=== PATIENT | female | born 1965 | race Caucasian/White ===

== ENCOUNTER 2017-12-27 18:46 | Inpatient (IN) | payer OTHER ==
[~2017-12-27] VITALS: Ht 162.6 cm; Wt 70.0 kg
[~2017-12-27 18:46] MED LIST: GABA-113 PO; ZLF50 PO
[2017-12-27] MEDS ORDERED: SODIUM CHLORIDE 0.9% 1000ML 1,000 ML IV STA (19:01)
[2017-12-27] MEDS ORDERED: DiphenhydrAMINE HCL 50 MG/ML VIAL IV STA (19:01)
[2017-12-27] MEDS ORDERED: PROMETHAZINE HCL INJ 25 MG in SODIUM CHLORIDE 0.9% 50ML 50 ML IV STA (19:01)
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
[2017-12-27 19:14] LABS: HEMATOCRIT 38.3 % (37-47); HEMOGLOBIN 13.3 g/dL (12.0-16.0); MEAN CELL VOLUME 92.5 fL (80-100); MEAN CORPUSCULAR HEMOGLOBIN 32.1 pg (25-34); MEAN CORPUSCULAR HGB CONC 34.7 g/dl (32-36); MEAN PLATELET VOLUME 10.6 fL (7.4-10.4); PLATELET COUNT 211 K/uL (130-400); RED CELL DISTRIBUTION WIDTH CV 12.9 % (11.5-14.5); RED CELL DISTRIBUTION WIDTH SD 43.2 fL (36.4-46.3); WHITE BLOOD COUNT 5.46 K/uL (4.8-10.8)
[2017-12-27 19:27] LABS: INR 0.9 (0.9-1.1); PTT PATIENT 25.8 SECONDS (21.0-31.0)
--- NOTE | 2017-12-27 19:29 | DIAGNOSTIC IMAGING REPORT ---
CHEST ONE VIEW PORTABLE CLINICAL HISTORY: EVALUATE ALTERED MENTAL STATUS/WEAKNESS mental status change COMPARISON STUDY: No previous studies for comparison. FINDINGS: The bones soft tissues and hemidiaphragms are normal. The cardiomediastinal silhouette is normal. The lungs are clear. The pulmonary vasculature is normal. Bilateral bile stimulator leads. IMPRESSION: No acute process. The above report was generated using voice recognition software. It may contain grammatical, syntax or spelling errors. Electronically signed by: Jorgito Lacy M.D. 12/27/2017 7:27 PM Dictated Date/Time: 12/27/2017 7:27 PM
--- NOTE | 2017-12-27 19:35 | DIAGNOSTIC IMAGING REPORT ---
HEAD WITHOUT CONTRAST (CT) CT DOSE: 623.48 mGy.cm HISTORY: Mental status change EVALUATE ALTERED MENTAL STATUS/WEAKNESS TECHNIQUE: Multiaxial CT images of the head were performed without the use of intravenous contrast. A dose lowering technique was utilized adhering to the principles of ALARA. Comparison: 07/10/2014 Findings: The paranasal sinuses and mastoid air cells are clear. The calvarium and skull base are intact. The ventricles and sulci are within normal limits. There is no mass, hematoma, midline shift, or acute infarct. Impression: No acute intracranial abnormality. The above report was generated using voice recognition software. It may contain grammatical, syntax or spelling errors. Electronically signed by: Jorgito Lacy M.D. 12/27/2017 7:34 PM Dictated Date/Time: 12/27/2017 7:32 PM
[2017-12-27 19:54] LABS: ALBUMIN 3.6 gm/dl (3.4-5.0); ALKALINE PHOSPHATASE 206 U/L (45-117); ALT/SGPT 112 U/L (12-78); AST/SGOT 37 U/L (15-37); BLOOD UREA NITROGEN 11 mg/dl (7-18); CARBON DIOXIDE 27 mmol/L (21-32); CREATININE 0.99 mg/dl (0.60-1.20); GLUCOSE 67 mg/dl (70-99); POTASSIUM 3.4 mmol/L (3.5-5.1); SODIUM 140 mmol/L (136-145); TOTAL PROTEIN 7.2 gm/dl (6.4-8.2)
[2017-12-27] MEDS ORDERED: LIDOCAINE 1% BUFFERED INJ 5 ML VIAL INFIL ONE (20:30)
[2017-12-27] MEDS ORDERED: KETOROLAC TROMETHAMINE 30 MG/ML VIAL IV STA (20:50)
[2017-12-27 21:21] LABS: BASO % 1.1 %; BASO ABS # 0.06 K/uL (0-0.2); EOS % 1.1 %; EOS ABS # 0.06 K/uL (0-0.5); IG# 0.01 K/uL (0.00-0.02); LYMPH % 50.5 %; LYMPH ABS # 2.76 K/uL (1.2-3.4); MONO % 6.6 %; MONO ABS # 0.36 K/uL (0.11-0.59); NEUT % 40.5 %; NEUT ABS # 2.21 K/uL (1.4-6.5)
[2017-12-27 21:26] LABS: CSF GLUCOSE 57 mg/dl (40-70); CSF TOTAL PROTEIN 41.5 mg/dl (15.0-45.0)
[2017-12-27] MEDS ORDERED: CEFTRIAXONE SOD INJ 2,000 MG in DEXTROSE 5% 50ML 50 ML IV STA (22:20)
[2017-12-27] MEDS ORDERED: CEFTRIAXONE SOD INJ 1 GM ADDVIAL ONE (22:45)
[2017-12-27] MEDS ORDERED: CALCIUM GLUCONATE 10% 1,000 MG in SODIUM CHLORIDE 0.9% 50ML 50 ML IV STA (22:48)
[2017-12-27] MEDS ORDERED: BUTA1TAB70 PO (22:58)
[2017-12-27] MEDS ORDERED: NRN800 PO (22:58)
[2017-12-27] MEDS ORDERED: ROPI1TAB29 PO (22:58)
[2017-12-27] MEDS ORDERED: ZNF/4 PO (22:58)
[2017-12-27] MEDS ORDERED: OXYM1TAB37 PO (22:58)
[2017-12-27] MEDS ORDERED: POTASSIUM CHLORIDE 10 MEQ TABCR ONE (23:59)
[2017-12-28] MEDS ORDERED: PROCHLORPERAZINE INJ 5 MG in SYRINGE 4 ML IV PRN (00:15)
[2017-12-28] MEDS ORDERED: ACETAMINOPHEN 325 MG TAB PO PRN (00:15)
[2017-12-28] MEDS ORDERED: MoRPHine SULFATE 4 MG/ML 1 ML CARP\\VIAL IV PRN (00:15)
[2017-12-28] MEDS ORDERED: IBUPROFEN 200 MG TAB PO PRN (00:15)
[2017-12-28] MEDS ORDERED: KETOROLAC TROMETHAMINE 15 MG/ML VIAL IV. PRN (00:15)
[2017-12-28] MEDS ORDERED: IV FLUIDS COMPLETED PRN (00:45)
[2017-12-28] MEDS ORDERED: LACTATED RINGER'S 1000ML 1,000 ML IV ONE (00:45)
[2017-12-28 01:48] VITALS: BP 111/71; PULSE 60; TEMP 36.8; O2SAT 97; Ht 162.6 cm; Wt 70.0 kg
[2017-12-28] MEDS ORDERED: POTASSIUM CHLORIDE 10 MEQ TABCR PO ONE (02:00)
[2017-12-28] MEDS ORDERED: DOXYCYCLINE IV 100 MG in DEXTROSE 5% 100ML 100 ML IV SCH (02:30)
--- NOTE | 2017-12-28 04:42 | HISTORY & PHYSICAL EXAMINATION ---
DATE OF ADMISSION: 12/27/2017 PRIMARY CARE PHYSICIAN: Dr. Rock CHIEF COMPLAINT: Illness and headache. HISTORY OF PRESENT ILLNESS: History obtained from patient and records. Medical history significant for chronic back pain sp stimulator placement on narcotics, ongoing tobacco abuse. Recent confinement at the [facility] last 04/2015 for major depressive disorder. Lst week, patient had on and off achy headache/posterior neck pain worse with coughing and lying down. Patient coughing out yellow sputum. No chest pain, no shortness of breath. Some chills. Poor appetite. Headache different from migraine. No recollection recent tick bites although has been exposed to ticks in the past. Patient brought to the Emergency Room. Patient given Ceftriaxone IV for abnormal Lyme screen after lumbar puncture done. MEDICAL HISTORY: As above. SURGERIES: Back stimulator. HOME MEDICATIONS: Include butalbital, gabapentin, oxymorphone, ropinirole, tizanidine. ALLERGIES: No known drug allergies. FAMILY HISTORY: Hypertension. PERSONAL AND SOCIAL HISTORY: Half pack daily. No chronic intake of alcohol abuse. 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 REVIEW OF SYSTEMS: As per HPI. All 10 systems reviewed. All other ROS negative. LABORATORY: Hg 13.8, White cell count 5.4, platelets 211. Sodium 140, K 3.4 glucose of 68 later 90. ALT 117 alk phos 206 Lyme screen IgM positive. Chest x-ray, no acute process. CT head, no acute pathology. CSF clear, colorless, no xanthochromia. CSF WBC was 8, glucose 57, total protein 41. ASSESSMENT AND PLAN: 1. Headache possibly from viral illness; post-tussive from complicated bronchitis. No sepsis rule out bony neck pathology ? TUNA PURSE SEINER Lyme (abnormal Lyme screen/atypical CSF picture) 2. Chronic back pain sp stimulator placement on narcotics. 3. Hypokalemia 4. Ongoing tobacco abuse PLAN: Observation GMF analgesia. Check viral CSF studies Cervical x-ray Doxycycline for complicated bronchitis. ID consult RE abnormal Lyme. Hold additional Ceftriaxone for possible TUNA PURSE SEINER Lyme until patient seen by ID. Replace potassium. Nicotine patch. DVT prophylaxis with Lovenox subQ. Full code. MTDD
[2017-12-28] MEDS ORDERED: ALBUT/IPRATROP 3MG/0.5MG NEB 3 ML VIAL INH PRN (06:30)
[2017-12-28] MEDS: GABAPENTIN 800 MG TAB PO SCH ×3 (07:37→20:37)
[2017-12-28] MEDS: NICOTINE 14 MG/24 HR TDSY TD SCH (07:37)
[2017-12-28 07:47] VITALS: BP 133/83; PULSE 69; TEMP 36.8; O2SAT 95
--- NOTE | 2017-12-28 08:35 | DIAGNOSTIC IMAGING REPORT ---
CERVICAL SPINE 2 OR 3 VIEWS CLINICAL HISTORY: Neck pain. COMPARISON STUDY: Cervical spine CT July 10, 2014. FINDINGS: Alignment of the cervical spine is anatomic. Vertebral body heights are maintained. There is no fracture or suspicious lesion. Disc spaces are preserved. There is minimal endplate osteophytosis at several levels. There is mild multilevel facet arthrosis. IMPRESSION: 1. No cervical spine fracture. 2. Minimal degenerative changes of the cervical spine. Electronically signed by: Nagi Santana M.D. 12/28/2017 8:33 AM Dictated Date/Time: 12/28/2017 8:31 AM
[2017-12-28 08:51] LABS: BASO % 1.2 %; BASO ABS # 0.05 K/uL (0-0.2); EOS % 0.7 %; EOS ABS # 0.03 K/uL (0-0.5); HEMATOCRIT 34.2 % (37-47); HEMOGLOBIN 11.3 g/dL (12.0-16.0); IG# 0.01 K/uL (0.00-0.02); LYMPH % 34.3 %; LYMPH ABS # 1.48 K/uL (1.2-3.4); MEAN CELL VOLUME 93.2 fL (80-100); MEAN CORPUSCULAR HEMOGLOBIN 30.8 pg (25-34); MEAN PLATELET VOLUME 10.6 fL (7.4-10.4); MONO ABS # 0.26 K/uL (0.11-0.59); NEUT % 57.6 %; NEUT ABS # 2.49 K/uL (1.4-6.5); PLATELET COUNT 177 K/uL (130-400); RED CELL DISTRIBUTION WIDTH CV 12.9 % (11.5-14.5); WHITE BLOOD COUNT 4.32 K/uL (4.8-10.8)
[2017-12-28] MEDS ORDERED: ENOXAPARIN 40 MG/0.4 ML SYR SQ SCH (09:00)
[2017-12-28] MEDS ORDERED: BENZONATATE 100MG CAP PO PRN (09:15)
[2017-12-28 09:28] LABS: CALCIUM 8.6 mg/dl (8.5-10.1); CREATININE 0.92 mg/dl (0.60-1.20); POTASSIUM 4.2 mmol/L (3.5-5.1); TOTAL PROTEIN 5.8 gm/dl (6.4-8.2)
[2017-12-28] MEDS: OXYMORPHONE HCL 10 MG PO SCH ×2 (13:49→20:38)
[2017-12-28] MEDS: PATIENT'S OWN CONTROLLED MED PO SCH ×2 (13:50→20:38)
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
[2017-12-28 15:53] VITALS: BP 120/77; PULSE 62; TEMP 36.4; O2SAT 97
--- NOTE | 2017-12-28 16:40 | Progress Note ---
Medicine Progress Note Date & Time of Visit: Dec 28, 2017 at 16:33. Subjective Seen sitting up in bed, talking on the phone Alert, comfortable, not in distress states her headache is 0 out of 10 at the time of my exam denies dizziness, fevers chills, Shortness of breath, chest pain No other symptoms Objective Last 8 Hrs Date Time Temp Pulse Resp B/P (MAP) Pulse Ox O2 Delivery O2 Flow Rate FiO2 12/28/17 15:53 36.4 62 20 120/77 (91) 97 Room Air Physical Exam: General-oriented 3, not in distress, speaking in sentences, no accessory muscle use Head- atraumatic Eyes- PERRL, EOMI, anicteric ENT- oropharynx clear Neck- supple, no JVD, positive small cervical lymphadenopathy lateral left side , no thyromegaly; carotids +2/2, no bruits appreciated Lungs- clear to auscultation bilaterally Heart-normal rate, regular rhythm; no murmur Abdomen- normal bowel sounds, soft, nontender, no masses or hepatosplenomegaly Extremities- no pretibial edema, no calf tenderness; peripheral pulses intact Neuro- alert, oriented x 3; no gross focal neurologic deficits Skin- warm & dry Laboratory Results: Last 24 Hours Test 12/27/17 18:50 12/27/17 19:04 12/27/17 20:45 12/27/17 23:58 Urine Color YELLOW Urine Appearance CLEAR Urine pH 6.5 Urine Specific [place] 1.012 Urine Protein NEG Urine Glucose (UA) NEG Urine Ketones NEG Urine Occult Blood NEG Urine Nitrite NEG Urine Bilirubin NEG Urine Urobilinogen POS Urine Leukocyte Esterase TRACE Urine WBC (Auto) 5-10 /hpf Urine RBC (Auto) 0-4 /hpf Urine Hyaline Casts (Auto) 1-5 /lpf Urine Epithelial Cells (Auto) >30 /lpf Urine Bacteria (Auto) NEG White Blood Count 5.46 K/uL Red Blood Count 4.14 M/uL Hemoglobin 13.3 g/dL Hematocrit 38.3 % Mean Corpuscular Volume 92.5 fL Mean Corpuscular Hemoglobin 32.1 pg Mean Corpuscular Hemoglobin Concent 34.7 g/dl Platelet Count 211 K/uL Mean Platelet Volume 10.6 fL Neutrophils (%) (Auto) 40.5 % Lymphocytes (%) (Auto) 50.5 % Monocytes (%) (Auto) 6.6 % Eosinophils (%) (Auto) 1.1 % Basophils (%) (Auto) 1.1 % Neutrophils # (Auto) 2.21 K/uL Lymphocytes # (Auto) 2.76 K/uL Monocytes # (Auto) 0.36 K/uL Eosinophils # (Auto) 0.06 K/uL Basophils # (Auto) 0.06 K/uL RDW Standard Deviation 43.2 fL RDW Coefficient of Variation 12.9 % Immature Granulocyte % (Auto) 0.2 % Immature Granulocyte # (Auto) 0.01 K/uL Prothrombin Time 9.8 SECONDS Prothromb Time International Ratio 0.9 Activated Partial Thromboplast Time 25.8 SECONDS Partial Thromboplastin Ratio 1.0 Sodium Level 140 mmol/L Potassium Level 3.4 mmol/L Chloride Level 107 mmol/L Carbon Dioxide Level 27 mmol/L Anion Gap 6.0 mmol/L Blood Urea Nitrogen 11 mg/dl Creatinine 0.99 mg/dl Est Creatinine Clear Calc Drug Dose 65.8 ml/min Estimated GFR () 77.0 Estimated GFR (Non- 66.4 BUN/Creatinine Ratio 10.6 Random Glucose 67 mg/dl Calcium Level 8.0 mg/dl Magnesium Level 2.0 mg/dl Total Bilirubin 0.8 mg/dl Direct Bilirubin 0.3 mg/dl Aspartate Amino Transf (AST/SGOT) 37 U/L Alanine Aminotransferase (ALT/SGPT) 112 U/L Alkaline Phosphatase 206 U/L Troponin I < 0.015 ng/ml Total Protein 7.2 gm/dl Albumin 3.6 gm/dl Thyroid Stimulating Hormone (TSH) 4.890 uIu/ml Lyme Disease IgG Antibody NEG Lyme Disease IgM Antibody POS CSF Color COLORLESS CSF Appearance CLEAR CSF WBC 8 /uL CSF RBC 0 /uL CSF Xanthrochromic NO XANTHOCHROMIA CSF Cell Count Tube # 4 CSF Chemistry Tube # 2 CSF Glucose 57 mg/dl CSF Total Protein 41.5 mg/dl Bedside Glucose 96 mg/dl Test 12/28/17 08:06 White Blood Count 4.32 K/uL Red Blood Count 3.67 M/uL Hemoglobin 11.3 g/dL Hematocrit 34.2 % Mean Corpuscular Volume 93.2 fL Mean Corpuscular Hemoglobin 30.8 pg Mean Corpuscular Hemoglobin Concent 33.0 g/dl Platelet Count 177 K/uL Mean Platelet Volume 10.6 fL Neutrophils (%) (Auto) 57.6 % Lymphocytes (%) (Auto) 34.3 % Monocytes (%) (Auto) 6.0 % Eosinophils (%) (Auto) 0.7 % Basophils (%) (Auto) 1.2 % Neutrophils # (Auto) 2.49 K/uL Lymphocytes # (Auto) 1.48 K/uL Monocytes # (Auto) 0.26 K/uL Eosinophils # (Auto) 0.03 K/uL Basophils # (Auto) 0.05 K/uL RDW Standard Deviation 44.0 fL RDW Coefficient of Variation 12.9 % Immature Granulocyte % (Auto) 0.2 % Immature Granulocyte # (Auto) 0.01 K/uL Sodium Level 143 mmol/L Potassium Level 4.2 mmol/L Chloride Level 112 mmol/L Carbon Dioxide Level 27 mmol/L Anion Gap 4.0 mmol/L Blood Urea Nitrogen 11 mg/dl Creatinine 0.92 mg/dl Est Creatinine Clear Calc Drug Dose 70.3 ml/min Estimated GFR () 84.1 Estimated GFR (Non- 72.6 BUN/Creatinine Ratio 12.2 Random Glucose 103 mg/dl Calcium Level 8.6 mg/dl Total Bilirubin 0.6 mg/dl Aspartate Amino Transf (AST/SGOT) 127 U/L Alanine Aminotransferase (ALT/SGPT) 141 U/L Alkaline Phosphatase 217 U/L Total Protein 5.8 gm/dl Albumin 3.0 gm/dl Globulin 2.8 gm/dl Albumin/Globulin Ratio 1.1 Date/Time Source Procedure Growth Status 12/27/17 20:45 Cerebral Spinal Fluid Gram Stain - Final Resulted 12/27/17 20:45 Cerebral Spinal Fluid CSF Culture - Preliminary NO GROWTH TO DATE. 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 Chronic back pain sp stimulator placement on narcotics Continue usual medications Hypokalemia Replaced Potassium level normal Ongoing tobacco abuse Nicotine patch DVT prophylaxis Lovenox disposition Anticipate discharge home medically stable Current Inpatient Medications: Current Inpatient Medications Medications (Trade) Dose Ordered Sig/Abdiel Route Start Time Stop Time Status Last Admin Dose Admin Doxycycline Hyclate (Vibramycin Cap) 100 mg BID PO 12/28/17 20:00 01/04/18 20:59 Acetaminophen (Tylenol Tab) 325 mg Q6H PRN PO 12/28/17 00:15 01/27/18 00:14 12/28/17 05:09 325 MG Prochlorperazine Edisylate 5 mg/ Syringe 5 ml @ 5 mls/min Q6H PRN IV 12/28/17 00:15 01/27/18 00:14 Ketorolac Tromethamine (Toradol Inj) 15 mg Q6H PRN IV. 12/28/17 00:15 01/02/18 00:14 12/28/17 07:12 15 MG Ibuprofen (Advil Tab) 400 mg Q6H PRN PO 12/28/17 00:15 01/27/18 00:14 Morphine Sulfate (MoRPHine SULFATE INJ) 4 mg Q6H PRN IV 12/28/17 00:15 01/11/18 00:14 Gabapentin (Neurontin Tab) 800 mg TID PO 12/28/17 08:00 01/27/18 08:59 12/28/17 13:49 800 MG Ropinirole HCl (Requip Tab) 1 mg HS PO 12/28/17 21:00 01/27/18 20:59 Tizanidine HCl (Zanaflex Tab) 4 mg TID PRN PO 12/28/17 00:15 01/27/18 00:14 12/28/17 03:00 4 MG Nicotine (Nicoderm Cq 14MG Patch) 1 patch QAM TD 12/28/17 08:00 01/27/18 08:59 12/28/17 07:37 1 PATCH Miscellaneous (Remove Nicoderm Patch) 1 ea HS N/A 12/28/17 21:00 01/27/18 20:59 Miscellaneous (Iv Fluids Completed) 1 ea PRN PRN N/A 12/28/17 00:45 12/28/18 00:44 Albuterol/ Ipratropium (Duoneb) 3 ml Q2H PRN INH 12/28/17 06:30 01/27/18 06:29 Benzonatate (Tessalon Perles Cap) 100 mg Q8H PRN PO 12/28/17 09:15 01/27/18 09:14 Enoxaparin Sodium (Lovenox Inj) 40 mg Q24H SQ 12/29/17 09:00 01/27/18 08:59 Oxymorphone HCl (Opana Er) 10 mg TID PO 12/28/17 14:00 01/11/18 13:59 12/28/17 13:49 10 MG Non-Formulary Medication (Patient'S Own Controlled Med) 1 ea TID PO 12/28/17 14:00 01/11/18 13:59 12/28/17 13:50 1 EA
[2017-12-28] MEDS: SODIUM CHLORIDE 0.9% 1000ML 1,000 ML IV SCH (17:07)
--- NOTE | 2017-12-28 18:50 | DIAGNOSTIC IMAGING REPORT ---
(LIVER) ABDOMEN LIMITED HISTORY: 52 years-old Female ELEVATED LFTS acutely elevated LFTs COMPARISON: None available TECHNIQUE: Multiple real-time sonographic images of the abdominal right upper quadrant were obtained assessing grayscale appearance and color flow FINDINGS: The visualized pancreas appears unremarkable. The liver is also within normal limits without focal mass, marginal nodularity or intrahepatic biliary ductal dilation. Liver measures up to 17.7 cm in greatest dimension. The gallbladder is unremarkable without wall thickening, shadowing cholelithiasis or pericholecystic fluid. Sonographic Manning sign reported as negative. Common bile duct is normal, 5 mm. The imaged right kidney is unremarkable without hydronephrosis measuring up to 10.9 cm in length. IMPRESSION: 1. No cholelithiasis or sonographic evidence of acute cholecystitis. 2. No biliary ductal dilation. The above report was generated using voice recognition software. It may contain grammatical, syntax or spelling errors. Electronically signed by: Pa Smith M.D. 12/28/2017 6:49 PM Dictated Date/Time: 12/28/2017 6:47 PM
[2017-12-28] MEDS ORDERED: DOXYCYCLINE HYCLATE 100 MG CAP PO SCH (20:00)
[2017-12-28] MEDS: CEFTRIAXONE SOD INJ 2,000 MG in DEXTROSE 5% 50ML 50 ML IV SCH (20:38)
[2017-12-28] MEDS: ROPINIROLE HCL 1 MG TAB PO SCH (20:38)
[2017-12-28 20:40] VITALS: BP 115/77; PULSE 63; TEMP 36.7; O2SAT 96
[2017-12-28 23:15] VITALS: BP 115/77; PULSE 65; TEMP 36.7; O2SAT 96
[2017-12-29] MEDS: SODIUM CHLORIDE 0.9% 1000ML 1,000 ML IV SCH ×2 (06:06→19:41)
[2017-12-29 07:05] VITALS: BP 125/72; PULSE 56; TEMP 36.6; O2SAT 95
[2017-12-29] MEDS: PATIENT'S OWN CONTROLLED MED PO SCH ×3 (08:00→20:00)
[2017-12-29] MEDS: OXYMORPHONE HCL 10 MG PO SCH ×3 (08:45→20:30)
[2017-12-29] MEDS: GABAPENTIN 800 MG TAB PO SCH ×3 (08:47→20:33)
[2017-12-29] MEDS: NICOTINE 14 MG/24 HR TDSY TD SCH (08:48)
[2017-12-29] MEDS: ENOXAPARIN 40 MG/0.4 ML SYR SQ SCH ×2 (08:48→08:50)
--- NOTE | 2017-12-29 09:47 | DIAGNOSTIC IMAGING REPORT ---
CT OF THE BRAIN WITH IV CONTRAST CLINICAL HISTORY: Headaches. COMPARISON STUDY: Noncontrast study dated 12/27/2017 TECHNIQUE: Axial CT of the brain is performed from the vertex to the skull base. IV contrast was administered for this examination. A dose lowering technique was utilized adhering to the principles of ALARA. The patient was administered 93 cc of Optiray 320. CT DOSE: 1074.96 mGy.cm DISCUSSION: Brain parenchyma: The brain parenchyma is normal in appearance. There is no hemorrhage, mass effect, or evidence of acute territorial ischemia by CT criteria. Rios-white matter differentiation is maintained. No extra-axial fluid collection is seen. Ventricles, sulci and cisterns: Normal in configuration. Intracranial vasculature: Unremarkable. Calvarium: Unremarkable. Sinuses and mastoids: The imaged paranasal sinuses are clear. The mastoid air cells are well pneumatized. Orbits: Grossly intact. IMPRESSION: [No acute intracranial findings.] Electronically signed by: Romie Ott M.D. 12/29/2017 9:46 AM Dictated Date/Time: 12/29/2017 9:44 AM
[2017-12-29 09:48] LABS: ALBUMIN 3.1 gm/dl (3.4-5.0); CALCIUM 8.8 mg/dl (8.5-10.1); CREATININE 0.95 mg/dl (0.60-1.20); TOTAL PROTEIN 6.4 gm/dl (6.4-8.2)
--- NOTE | 2017-12-29 13:01 | Progress Note ---
Medicine Progress Note Date & Time of Visit: Dec 29, 2017 at 13:01. Subjective Seen sitting up in bedside chair, comfortable, good spirits No recurrence of headache since yesterday Has mild neck muscle pain contributes to when she was vomiting Denies dizziness, shortness of breath, chest pain, abdominal pain, fevers chills No other symptoms Objective Last 8 Hrs Date Time Temp Pulse Resp B/P (MAP) Pulse Ox O2 Delivery O2 Flow Rate FiO2 12/29/17 09:21 Room Air 12/29/17 07:05 36.6 56 18 125/72 (89) 95 Room Air Physical Exam: General-oriented 3, not in distress, speaking in sentences, no accessory muscle use Eyes-anicteric ENT- oropharynx clear Neck- supple, no JVD Lungs- clear breath sounds bilaterally Heart-normal rate, regular rhythm; no murmur Abdomen- normal bowel sounds, soft, nontender Extremities- no pretibial edema, no calf tenderness; peripheral pulses intact Neuro- alert, oriented x 3; no gross focal neurologic deficits Skin- warm & dry Laboratory Results: Last 24 Hours Test 12/29/17 08:37 Sodium Level 143 mmol/L Potassium Level 4.0 mmol/L Chloride Level 109 mmol/L Carbon Dioxide Level 30 mmol/L Anion Gap 4.0 mmol/L Blood Urea Nitrogen 12 mg/dl Creatinine 0.95 mg/dl Est Creatinine Clear Calc Drug Dose 68.0 ml/min Estimated GFR () 80.9 Estimated GFR (Non- 69.8 BUN/Creatinine Ratio 12.8 Random Glucose 96 mg/dl Calcium Level 8.8 mg/dl Total Bilirubin 0.4 mg/dl Direct Bilirubin 0.2 mg/dl Aspartate Amino Transf (AST/SGOT) 50 U/L Alanine Aminotransferase (ALT/SGPT) 111 U/L Alkaline Phosphatase 194 U/L Total Protein 6.4 gm/dl Albumin 3.1 gm/dl Assessment & Plan HEADACHE, POSSIBLY FROM UNDERLYING LYME DISEASE Status post lumbar puncture: WBC 8, glucose and protein within normal limits CSF cultures no growth IgM Lyme positive Western blot pending, CSF Lyme pending ID consulted, recommend to continue ceftriaxone 2 g IV daily Brain MRI with and without contrast ordered-not done as patient is back stimulator CT head with contrast: No acute findings Headache resolved Other workup: Cervical spine x-ray no acute process POSSIBLE ACUTE BRONCHITIS Chest x-ray no signs of infiltrate to indicate pneumonia Currently on ceftriaxone Denies cough and shortness of breath ELEVATED LFTS Can be secondary to underlying infection Patient denies alcohol use Check liver ultrasound no acute findings Check hepatitis panel hepatitis C: Negative, hepatitis A B pending LFTs improving, monitor Chronic back pain sp stimulator placement on narcotics Continue usual medications Hypokalemia Replaced Potassium level normal Ongoing tobacco abuse Nicotine patch DVT prophylaxis Lovenox disposition Anticipate discharge home medically stable Current Inpatient Medications: Current Inpatient Medications Medications (Trade) Dose Ordered Sig/Abdiel Route Start Time Stop Time Status Last Admin Dose Admin Acetaminophen (Tylenol Tab) 325 mg Q6H PRN PO 12/28/17 00:15 01/27/18 00:14 12/28/17 05:09 325 MG Prochlorperazine Edisylate 5 mg/ Syringe 5 ml @ 5 mls/min Q6H PRN IV 12/28/17 00:15 01/27/18 00:14 Morphine Sulfate (MoRPHine SULFATE INJ) 4 mg Q6H PRN IV 12/28/17 00:15 01/11/18 00:14 Gabapentin (Neurontin Tab) 800 mg TID PO 12/28/17 08:00 01/27/18 08:59 12/29/17 08:47 800 MG Ropinirole HCl (Requip Tab) 1 mg HS PO 12/28/17 21:00 01/27/18 20:59 12/28/17 20:38 1 MG Tizanidine HCl (Zanaflex Tab) 4 mg TID PRN PO 12/28/17 00:15 01/27/18 00:14 12/28/17 03:00 4 MG Nicotine (Nicoderm Cq 14MG Patch) 1 patch QAM TD 12/28/17 08:00 01/27/18 08:59 12/29/17 08:48 1 PATCH Miscellaneous (Remove Nicoderm Patch) 1 ea HS N/A 12/28/17 21:00 01/27/18 20:59 12/28/17 20:38 1 EA Miscellaneous (Iv Fluids Completed) 1 ea PRN PRN N/A 12/28/17 00:45 12/28/18 00:44 Albuterol/ Ipratropium (Duoneb) 3 ml Q2H PRN INH 12/28/17 06:30 8/23/18 06:29 Benzonatate (Tessalon Perles Cap) 100 mg Q8H PRN PO 12/28/17 09:15 01/27/18 09:14 Enoxaparin Sodium (Lovenox Inj) 40 mg Q24H SQ 12/29/17 09:00 01/27/18 08:59 Oxymorphone HCl (Opana Er) 10 mg TID PO 12/28/17 14:00 01/11/18 13:59 12/29/17 08:45 10 MG Non-Formulary Medication (Patient'S Own Controlled Med) 1 ea TID PO 12/28/17 14:00 01/11/18 13:59 12/29/17 08:00 1 EA Ceftriaxone Sodium 2000 mg/ Dextrose 70 ml @ 100 mls/hr Q24H IV 12/28/17 21:00 01/06/18 20:59 12/28/17 20:38 100 MLS/HR Sodium Chloride 1,000 ml @ 75 mls/hr [id number] IV 12/28/17 16:45 01/27/18 16:44 12/29/17 06:06 75 MLS/HR
[2017-12-29 14:15] LABS: HEP C IGG 13 YRS+OLDER_RFLX NEG (NEG)
[2017-12-29 15:31] VITALS: BP 119/71; PULSE 56; TEMP 36.8; O2SAT 96
[2017-12-29] MEDS ORDERED: CYCLOBENZAPRINE HCL 5 MG TAB PO PRN (19:15)
[2017-12-29] MEDS: ROPINIROLE HCL 1 MG TAB PO SCH (20:33)
[2017-12-29] MEDS: CEFTRIAXONE SOD INJ 2,000 MG in DEXTROSE 5% 50ML 50 ML IV SCH (20:35)
[2017-12-30 00:15] VITALS: BP 124/75; PULSE 56; TEMP 36.5; O2SAT 93
[2017-12-30 07:36] VITALS: BP 149/88; PULSE 58; TEMP 36.7; O2SAT 95
[2017-12-30 08:19] LABS: CREATININE 0.99 mg/dl (0.60-1.20); TOTAL PROTEIN 6.1 gm/dl (6.4-8.2)
[2017-12-30] MEDS: ENOXAPARIN 40 MG/0.4 ML SYR SQ SCH (08:30)
[2017-12-30] MEDS: GABAPENTIN 800 MG TAB PO SCH ×2 (08:42→13:50)
[2017-12-30] MEDS: NICOTINE 14 MG/24 HR TDSY TD SCH (08:43)
[2017-12-30] MEDS: OXYMORPHONE HCL 10 MG PO SCH ×2 (08:43→13:50)
[2017-12-30] MEDS: PATIENT'S OWN CONTROLLED MED PO SCH ×2 (08:47→13:50)
[2017-12-30] MEDS: SODIUM CHLORIDE 0.9% 1000ML 1,000 ML IV SCH (08:47)
--- NOTE | 2017-12-30 10:25 | Infectious Disease Progress Nt ---
Progress Note Date of Service Dec 30, 2017. Subjective Pt evaluation today including: conversation w/ patient, physical exam, chart review, lab review, review of studies, conversation w/ e business consultant, review of inpatient medication list Patient feeling significantly better, headache resolved, back pain also gone. Remains afebrile. No other new complaints. All Other Systems: Reviewed and Negative Medications Current Inpatient Medications Medications (Trade) Dose Ordered Sig/Abdiel Route Start Time Stop Time Status Last Admin Dose Admin Acetaminophen (Tylenol Tab) 325 mg Q6H PRN PO 12/28/17 00:15 01/27/18 00:14 12/28/17 05:09 325 MG Prochlorperazine Edisylate 5 mg/ Syringe 5 ml @ 5 mls/min Q6H PRN IV 12/28/17 00:15 01/27/18 00:14 Morphine Sulfate (MoRPHine SULFATE INJ) 4 mg Q6H PRN IV 12/28/17 00:15 01/11/18 00:14 Gabapentin (Neurontin Tab) 800 mg TID PO 12/28/17 08:00 01/27/18 08:59 12/30/17 08:42 800 MG Ropinirole HCl (Requip Tab) 1 mg HS PO 12/28/17 21:00 01/27/18 20:59 12/29/17 20:33 1 MG Tizanidine HCl (Zanaflex Tab) 4 mg TID PRN PO 12/28/17 00:15 01/27/18 00:14 12/29/17 14:33 4 MG Nicotine (Nicoderm Cq 14MG Patch) 1 patch QAM TD 12/28/17 08:00 01/27/18 08:59 12/30/17 08:43 1 PATCH Miscellaneous (Remove Nicoderm Patch) 1 ea HS N/A 12/28/17 21:00 01/27/18 20:59 12/29/17 20:34 1 EA Miscellaneous (Iv Fluids Completed) 1 ea PRN PRN N/A 12/28/17 00:45 12/28/18 00:44 Albuterol/ Ipratropium (Duoneb) 3 ml Q2H PRN INH 12/28/17 06:30 01/27/18 06:29 Benzonatate (Tessalon Perles Cap) 100 mg Q8H PRN PO 12/28/17 09:15 01/27/18 09:14 Enoxaparin Sodium (Lovenox Inj) 40 mg Q24H SQ 12/29/17 09:00 01/27/18 08:59 Oxymorphone HCl (Opana Er) 10 mg TID PO 12/28/17 14:00 01/11/18 13:59 12/30/17 08:43 10 MG Non-Formulary Medication (Patient'S Own Controlled Med) 1 ea TID PO 12/28/17 14:00 01/11/18 13:59 12/30/17 08:47 1 EA Ceftriaxone Sodium 2000 mg/ Dextrose 70 ml @ 100 mls/hr Q24H IV 12/28/17 21:00 01/06/18 20:59 12/29/17 20:35 100 MLS/HR Sodium Chloride 1,000 ml @ 75 mls/hr [id number] IV 12/28/17 16:45 01/27/18 16:44 12/30/17 08:47 75 MLS/HR Cyclobenzaprine HCl (Flexeril Tab) 5 mg BID PRN PO 12/29/17 19:15 01/28/18 19:14 Objective Vital Signs Date Time Temp Pulse Resp B/P (MAP) Pulse Ox O2 Delivery O2 Flow Rate FiO2 12/30/17 08:57 Room Air 12/30/17 07:36 36.7 58 16 149/88 (108) 95 Room Air 12/30/17 00:15 36.5 56 16 124/75 (91) 93 Room Air 12/30/17 00:00 Room Air 12/29/17 18:55 Room Air 12/29/17 15:31 36.8 56 20 119/71 (87) 96 Room Air Physical Exam General Appearance: WD/WN, no apparent distress Eyes: normal inspection, EOMI, sclerae normal ENT: normal ENT inspection, hearing grossly normal, pharynx normal Neck: supple, no adenopathy, thyroid normal, trachea midline Respiratory/Chest: chest non-tender, lungs clear, normal breath sounds, no respiratory distress Cardiovascular: regular rate, rhythm, no gallop, no murmur Abdomen: normal bowel sounds, non tender, soft, no organomegaly Extremities: non-tender, no calf tenderness, normal capillary refill Neurologic/Psychiatric: alert, normal mood/affect, oriented x 3 Skin: normal color, warm/dry, no rash Lymphatic: no adenopathy Laboratory Results RUN DATE: 12/29/17 [facility] LAB PAGE 1 RUN TIME: 946 Specimen Inquiry PATIENT: JESÚS MARTE I LOC: [facility] U # : [id number] AGE/SX: 52/F ROOM: [facility] REG : 12/27/[address]: Justus Rayo MD : 1965 BED: 2 DIS : STATUS: ADM Christiano TLOC: SPEC #: [id number] LORNE: 12/27/17 STATUS: COMP REQ #: [id number] RECD: 12/27/[address]: Renato Vargas DO SOURCE: CSF ENTR: 12/27/[address]: René Rock M.D. 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 TUBE#3 TUBE # TO USE FOR SPINAL FLUID CELL CULTURE= 3 Procedure Result Verified Site GRAM STAIN Final 12/28/17-655 RESULT NO ORGANISMS SEEN FEW WBCs SEEN CSF CULTURE Final 12/29/17-946 NO GROWTH Last 24 Hours Test 12/30/17 06:50 Sodium Level 144 mmol/L Potassium Level 4.0 mmol/L Chloride Level 109 mmol/L Carbon Dioxide Level 32 mmol/L Anion Gap 3.0 mmol/L Blood Urea Nitrogen 14 mg/dl Creatinine 0.99 mg/dl Est Creatinine Clear Calc Drug Dose 65.3 ml/min Estimated GFR () 77.0 Estimated GFR (Non- 66.4 BUN/Creatinine Ratio 14.6 Random Glucose 96 mg/dl Calcium Level 9.0 mg/dl Total Bilirubin 0.3 mg/dl Direct Bilirubin 0.1 mg/dl Aspartate Amino Transf (AST/SGOT) 29 U/L Alanine Aminotransferase (ALT/SGPT) 81 U/L Alkaline Phosphatase 164 U/L Total Protein 6.1 gm/dl Albumin 3.0 gm/dl Patient Name: JESÚS MARTE I Unit Number: [id number] Dictated: 12/29/17943 Transcribed: 12/29/17943 ARG Printed Date/Time: [~ rep prt dt]/[~ rep prt tm] [~ rep ct labl] - [~ rep ct ivnm] [facility] [place] [address] Dictated: 12/29/17943 Transcribed: 12/29/17943 ARG Printed Date/Time: [~ rep prt dt]/[~ rep prt tm] [~ rep ct labl] - [~ rep ct ivnm] CT OF THE BRAIN WITH IV CONTRAST CLINICAL HISTORY: Headaches. COMPARISON STUDY: Noncontrast study dated 12/27/2017 TECHNIQUE: Axial CT of the brain is performed from the vertex to the skull base. IV contrast was administered for this examination. A dose lowering technique was utilized adhering to the principles of ALARA. The patient was administered 93 cc of Optiray 320. CT DOSE: 1074.96 mGy.cm DISCUSSION: Brain parenchyma: The brain parenchyma is normal in appearance. There is no hemorrhage, mass effect, or evidence of acute territorial ischemia by CT criteria. Rios-white matter differentiation is maintained. No extra-axial fluid collection is seen. Ventricles, sulci and cisterns: Normal in configuration. Intracranial vasculature: Unremarkable. Calvarium: Unremarkable. Sinuses and mastoids: The imaged paranasal sinuses are clear. The mastoid air cells are well pneumatized. Orbits: Grossly intact. IMPRESSION: [No acute intracranial findings.] Electronically signed by: Romie Ott M.D. 12/29/2017 9:46 AM Dictated Date/Time: 12/29/2017 9:44 AM The status of this report is Signed. Draft = Not yet reviewed or approved by Radiologist. Signed = Reviewed and approved by Radiologist. <AttendingPhy>Justus Rayo MD</AttendingPhy> <FamilyPhy>René Rock M.D.</FamilyPhy> <PrimaryPhy>René Rock M.D.</PrimaryPhy> <UnitNumber >[id number]</UnitNumber> <VisitNumber>[id number]</VisitNumber> <PatientName> JESÚS MARTE I</PatientName> <DateOfBirth>1965</DateOfBirth> <Location >4W</Location> <ServiceDate>12/27/17</ServiceDate> <MNE>ESINDI</MNE> < OrderingPhy>Justus Rayo MD</OrderingPhy> <OrderingPhyMNE>f rep ord dr ann< /OrderingPhyMNE> <DictatingPhyMNE>f rep dict dr ann</DictatingPhyMNE> <CCListMNE >f rep ct mne</CCListMNE> <AdmittingPhyMNE>f pt admit dr ann</AdmittingPhyMNE> < AttendingPhyMNE>f pt attend dr ann</AttendingPhyMNE> <ConsultingPhyMNE>f pt consult dr ann</ConsultingPhyMNE> <FamilyPhyMNE>f pt fam dr ann</FamilyPhyMNE> <OtherPhyMNE>f pt other dr ann</OtherPhyMNE> < PrimaryPhyMNE>f pt prim care dr ann</PrimaryPhyMNE> <ReferringPhyMNE>f pt referring dr ann</ReferringPhyMNE> Assessment and Plan 52-year-old female with history of migraine headache now presents with worst headache of her life with CSF showing minimally elevated white blood cells, negative culture. Positive Lyme IgM serology suggestive of early Lyme disease. Given significant improvement in negative CSF cultures, would consider transitioning patient to oral doxycycline 100 mg twice daily for 14 day course.
[2017-12-30 10:57] LABS: HEPATITIS A IGM TC 51813E NON-REACTIVE (NON-REACTIVE); HEPATITIS B CORE IGM TC51854R NON-REACTIVE (NON-REACTIVE)
[2017-12-30 12:44] VITALS: BP 149/88; PULSE 58; TEMP 36.7; O2SAT 95
[2017-12-30] MEDS ORDERED: NICO14DI5 TD (13:30)
[2017-12-30] MEDS ORDERED: DXY100 PO (13:30)
--- NOTE | 2017-12-30 13:39 | Discharge Instructions ---
Discharge Instructions Date of Service Dec 30, 2017. Admission Reason for Admission: Headache Discharge Discharge Diagnosis / Problem: Lyme disease Discharge Goals Goal(s): Diagnostic testing, Therapeutic intervention Activity Recommendations Activity Limitations: as noted below (No heavy exertion until reevaluated by primary care physician) Lifting Limitations: until after follow-up appointment Exercise/Sports Limitations: until after follow-up appointment . Instructions / Follow-Up Instructions / Follow-Up Please review your new medication and follow instructions carefully. Always ensure adequate daily fluid intake. Include yogurt in your daily diet while taking antibiotics and at least one week after the horse. No smoking/alcohol. Call primary care physician or return to the ER immediately if with recurrence of symptoms, including headache, dizziness, fevers/chills, Weakness, nausea. Please Follow-up with Dr. Lim (associate of Dr. Rock) on Wednesday01/04/18 at 12:45pm. Current Hospital Diet Patient's current hospital diet: Regular Diet Discharge Diet Recommended Diet: Regular Diet Procedures Procedures Performed: CT scan of the head, Lumbar Puncture; Cerebrospinal Fluid Lyme Disease Test; Western Blot test for Lyme Disease Pending Studies Studies pending at discharge: no Medical Emergencies . Who to Call and When: Medical Emergencies: If at any time you feel your situation is an emergency, please call 911 immediately. . Non-Emergent Contact Non-Emergency issues call your: Primary Care Provider Call Non-Emergent contact if: you have a fever, your pain is not controlled, your pain is worsening, your pain is unusual for you, wound has increased drainage, wound has increased redness, wound has increased pain, you have any medication questions . . "Provider Documentation" section prepared by Justus Rayo. .
--- NOTE | 2017-12-30 13:41 | Progress Note ---
Medicine Progress Note Date & Time of Visit: Dec 30, 2017 at 13:40. Subjective Delayed entry Date of service as noted above Seen sitting up in bedside chair, comfortable, in good spirits States she feels much better, back to baseline No recurrence of headache No fever chills, cough, shortness of breath States she is ready would like to be discharged Objective Last 8 Hrs Date Time Temp Pulse Resp B/P (MAP) Pulse Ox O2 Delivery O2 Flow Rate FiO2 12/30/17 12:44 36.7 58 16 95 Room Air 12/30/17 08:57 Room Air 12/30/17 07:36 36.7 58 16 149/88 (108) 95 Room Air Physical Exam: General-oriented 3, not in distress, speaking in sentences, no accessory muscle use Eyes-anicteric Neck- no JVD Lungs- clear breath sounds bilaterally , No crackles, no wheezing Heart-normal rate, regular rhythm; no murmur Abdomen- normal bowel sounds, soft, nontender Extremities- no pretibial edema, no calf tenderness Neuro- alert, oriented x 3; no gross focal neurologic deficits Skin- warm & dry Laboratory Results: Last 24 Hours Test 12/30/17 06:50 Sodium Level 144 mmol/L Potassium Level 4.0 mmol/L Chloride Level 109 mmol/L Carbon Dioxide Level 32 mmol/L Anion Gap 3.0 mmol/L Blood Urea Nitrogen 14 mg/dl Creatinine 0.99 mg/dl Est Creatinine Clear Calc Drug Dose 65.3 ml/min Estimated GFR () 77.0 Estimated GFR (Non- 66.4 BUN/Creatinine Ratio 14.6 Random Glucose 96 mg/dl Calcium Level 9.0 mg/dl Total Bilirubin 0.3 mg/dl Direct Bilirubin 0.1 mg/dl Aspartate Amino Transf (AST/SGOT) 29 U/L Alanine Aminotransferase (ALT/SGPT) 81 U/L Alkaline Phosphatase 164 U/L Total Protein 6.1 gm/dl Albumin 3.0 gm/dl Assessment & Plan HEADACHE, LIKELY SECONDARY TO LYME DISEASE - Status post lumbar puncture: WBC 8, glucose and protein within normal limits CSF cultures no growth CSF Lyme pending - serologies: IgM Lyme positive, Western blot positive ID consulted, recommend ceftriaxone 2 g IV daily Brain MRI with and without contrast ordered-not done as patient is back stimulator CT head with contrast: No acute findings Other workup: Cervical spine x-ray no acute process Given ceftriaxone IV while admitted Headache resolved, patient's clinical status much improved Continue doxycycline twice a day 14 days Follow-up with primary care physician in 3-5 days POSSIBLE ACUTE BRONCHITIS Chest x-ray no signs of infiltrate to indicate pneumonia Will be on doxycycline ELEVATED LFTS Can be secondary to underlying infection Patient denies alcohol use liver ultrasound no acute findings hepatitis panel negative LFTs improving, monitor Chronic back pain sp stimulator placement on narcotics Continue usual medications Ongoing tobacco abuse Nicotine patch DVT prophylaxis Lovenox disposition Discharge to home, follow-up with primary care physician in 3-5 days Current Inpatient Medications: Current Inpatient Medications Medications (Trade) Dose Ordered Sig/Abdiel Route Start Time Stop Time Status Last Admin Dose Admin Acetaminophen (Tylenol Tab) 325 mg Q6H PRN PO 12/28/17 00:15 01/27/18 00:14 12/28/17 05:09 325 MG Prochlorperazine Edisylate 5 mg/ Syringe 5 ml @ 5 mls/min Q6H PRN IV 12/28/17 00:15 01/27/18 00:14 Morphine Sulfate (MoRPHine SULFATE INJ) 4 mg Q6H PRN IV 12/28/17 00:15 01/11/18 00:14 Gabapentin (Neurontin Tab) 800 mg TID PO 12/28/17 08:00 01/27/18 08:59 12/30/17 08:42 800 MG Ropinirole HCl (Requip Tab) 1 mg HS PO 12/28/17 21:00 01/27/18 20:59 12/29/17 20:33 1 MG Tizanidine HCl (Zanaflex Tab) 4 mg TID PRN PO 12/28/17 00:15 01/27/18 00:14 12/29/17 14:33 4 MG Nicotine (Nicoderm Cq 14MG Patch) 1 patch QAM TD 12/28/17 08:00 01/27/18 08:59 12/30/17 08:43 1 PATCH Miscellaneous (Remove Nicoderm Patch) 1 ea HS N/A 12/28/17 21:00 01/27/18 20:59 12/29/17 20:34 1 EA Miscellaneous (Iv Fluids Completed) 1 ea PRN PRN N/A 12/28/17 00:45 12/28/18 00:44 Albuterol/ Ipratropium (Duoneb) 3 ml Q2H PRN INH 12/28/17 06:30 01/27/18 06:29 Benzonatate (Tessalon Perles Cap) 100 mg Q8H PRN PO 12/28/17 09:15 01/27/18 09:14 Enoxaparin Sodium (Lovenox Inj) 40 mg Q24H SQ 12/29/17 09:00 01/27/18 08:59 Oxymorphone HCl (Opana Er) 10 mg TID PO 12/28/17 14:00 01/11/18 13:59 12/30/17 08:43 10 MG Non-Formulary Medication (Patient'S Own Controlled Med) 1 ea TID PO 12/28/17 14:00 01/11/18 13:59 12/30/17 08:47 1 EA Ceftriaxone Sodium 2000 mg/ Dextrose 70 ml @ 100 mls/hr Q24H IV 12/28/17 21:00 01/06/18 20:59 12/29/17 20:35 100 MLS/HR Sodium Chloride 1,000 ml @ 75 mls/hr [id number] IV 12/28/17 16:45 01/27/18 16:44 12/30/17 08:47 75 MLS/HR Cyclobenzaprine HCl (Flexeril Tab) 5 mg BID PRN PO 12/29/17 19:15 01/28/18 19:14
--- NOTE | 2018-01-02 17:59 | Discharge Summary ---
Discharge Summary Date of Service Jan 02, 2018. Discharge Summary Admission Date: Dec 29, 2017 at 19:04 Discharge Date: Dec 30, 2017 Discharge Disposition: Home Principal Diagnosis: HEADACHE, LIKELY SECONDARY TO LYME DISEASE Secondary Diagnoses/Problems: Please refer to hospital course below. Procedures: HEAD WITHOUT CONTRAST (CT) CT DOSE: 623.48 mGy.cm HISTORY: Mental status change EVALUATE ALTERED MENTAL STATUS/WEAKNESS TECHNIQUE: Multiaxial CT images of the head were performed without the use of intravenous contrast. A dose lowering technique was utilized adhering to the principles of ALARA. Comparison: 07/10/2014 Findings: The paranasal sinuses and mastoid air cells are clear. The calvarium and skull base are intact. The ventricles and sulci are within normal limits. There is no mass, hematoma, midline shift, or acute infarct. Impression: No acute intracranial abnormality. CHEST ONE VIEW PORTABLE CLINICAL HISTORY: EVALUATE ALTERED MENTAL STATUS/WEAKNESS mental status change COMPARISON STUDY: No previous studies for comparison. FINDINGS: The bones soft tissues and hemidiaphragms are normal. The cardiomediastinal silhouette is normal. The lungs are clear. The pulmonary vasculature is normal. Bilateral bile stimulator leads. IMPRESSION: No acute process. (LIVER) ABDOMEN LIMITED HISTORY: 52 years-old Female ELEVATED LFTS acutely elevated LFTs COMPARISON: None available TECHNIQUE: Multiple real-time sonographic images of the abdominal right upper quadrant were obtained assessing grayscale appearance and color flow FINDINGS: The visualized pancreas appears unremarkable. The liver is also within normal limits without focal mass, marginal nodularity or intrahepatic biliary ductal dilation. Liver measures up to 17.7 cm in greatest dimension. The gallbladder is unremarkable without wall thickening, shadowing cholelithiasis or pericholecystic fluid. Sonographic Manning sign reported as negative. Common bile duct is normal, 5 mm. The imaged right kidney is unremarkable without hydronephrosis measuring up to 10.9 cm in length. IMPRESSION: 1. No cholelithiasis or sonographic evidence of acute cholecystitis. 2. No biliary ductal dilation. CT OF THE BRAIN WITH IV CONTRAST CLINICAL HISTORY: Headaches. COMPARISON STUDY: Noncontrast study dated 12/27/2017 TECHNIQUE: Axial CT of the brain is performed from the vertex to the skull base. IV contrast was administered for this examination. A dose lowering technique was utilized adhering to the principles of ALARA. The patient was administered 93 cc of Optiray 320. CT DOSE: 1074.96 mGy.cm DISCUSSION: Brain parenchyma: The brain parenchyma is normal in appearance. There is no hemorrhage, mass effect, or evidence of acute territorial ischemia by CT criteria. Rios-white matter differentiation is maintained. No extra-axial fluid collection is seen. Ventricles, sulci and cisterns: Normal in configuration. Intracranial vasculature: Unremarkable. Calvarium: Unremarkable. Sinuses and mastoids: The imaged paranasal sinuses are clear. The mastoid air cells are well pneumatized. Orbits: Grossly intact. IMPRESSION: [No acute intracranial findings.] Consultations: Infectious Disease Pending Studies/Follow-Up: Please refer to hospital course below. Medication Reconciliation New Medications: Doxycycline Hyclate (Doxycycline Hyclate) 100 Mg Cap 100 MG PO BID for 14 Days, #28 CAP 0 Refills Nicotine (Nicoderm Cq 14MG Patch) 14 Mg/24 Hr Dis 1 PATCH TD QAM for 10 Days, #10 PATCH 0 Refills Continued Medications: Pugrzmlekb-Xzcgepuzvlncz-Umylq (Esgic) 1 Tab Tab 1 TAB PO Q4H PRN for Pain Gabapentin (Gabapentin) 800 Mg Tab 800 MG PO TID Oxymorphone Hcl (Oxymorphone Hydrochloride) 10 Mg Tab 10 MG PO TID Ropinirole HCl (Ropinirole HCl) 1 Mg Tab 1 MG PO HS Tizanidine (Tizanidine HCl) 4 Mg Tab 4 MG PO TID PRN for Muscle Spasm Admission Information HPI (per Admitting provider): DATE OF ADMISSION: 12/27/2017 PRIMARY CARE PHYSICIAN: Dr. Rock CHIEF COMPLAINT: Illness and headache. HISTORY OF PRESENT ILLNESS: History obtained from patient and records. Medical history significant for chronic back pain sp stimulator placement on narcotics, ongoing tobacco abuse. [place] [facility] [place] major depressive disorder. Lst week, patient had on and off achy headache/posterior neck pain worse with coughing and lying down. Patient coughing out yellow sputum. No chest pain, no shortness of breath. Some chills. Poor appetite. Headache different from migraine. No recollection recent tick bites although has been exposed to ticks in the past. Patient brought to the Emergency Room. Patient given Ceftriaxone IV for abnormal Lyme screen after lumbar puncture done. Hospital Course HEADACHE, LIKELY SECONDARY TO LYME DISEASE - Status post lumbar puncture: WBC 8, glucose and protein within normal limits CSF cultures no growth CSF Lyme pending - serologies: IgM Lyme positive, Western blot positive ID consulted, recommend ceftriaxone 2 g IV daily Brain MRI with and without contrast ordered-not done as patient is back stimulator CT head with contrast: No acute findings Other workup: Cervical spine x-ray no acute process Given ceftriaxone IV while admitted Headache resolved, patient's clinical status much improved Continue doxycycline twice a day 14 days Follow-up with primary care physician in 3-5 days POSSIBLE ACUTE BRONCHITIS Chest x-ray no signs of infiltrate to indicate pneumonia Will be on doxycycline ELEVATED LFTS Can be secondary to underlying infection Patient denies alcohol use liver ultrasound no acute findings hepatitis panel negative LFTs improving, monitor Chronic back pain sp stimulator placement on narcotics Continue usual medications Ongoing tobacco abuse Nicotine patch DVT prophylaxis Lovenox disposition Discharge to home, follow-up with primary care physician in 3-5 days Total time spent on discharge = 30 mins This includes examination of the patient, discharge planning, medication reconciliation, and communication with other providers. Discharge Instructions Discharge Instructions Date of Service Dec 30, 2017. Admission Reason for Admission: Headache Discharge Discharge Diagnosis / Problem: Lyme disease Discharge Goals Goal(s): Diagnostic testing, Therapeutic intervention Activity Recommendations Activity Limitations: as noted below (No heavy exertion until reevaluated by primary care physician) Lifting Limitations: until after follow-up appointment Exercise/Sports Limitations: until after follow-up appointment . Instructions / Follow-Up Instructions / Follow-Up Please review your new medication and follow instructions carefully. Always ensure adequate daily fluid intake. Include yogurt in your daily diet while taking antibiotics and at least one week after the horse. No smoking/alcohol. Call primary care physician or return to the ER immediately if with recurrence of symptoms, including headache, dizziness, fevers/chills, Weakness, nausea. Please Follow-up with Dr. Lim (associate of Dr. Rock) on Wednesday01/04/18 at 12:45pm. Current Hospital Diet Patient's current hospital diet: Regular Diet Discharge Diet Recommended Diet: Regular Diet Procedures Procedures Performed: CT scan of the head, Lumbar Puncture; Cerebrospinal Fluid Lyme Disease Test; Western Blot test for Lyme Disease Pending Studies Studies pending at discharge: no Medical Emergencies . Who to Call and When: Medical Emergencies: If at any time you feel your situation is an emergency, please call 911 immediately. . Non-Emergent Contact Non-Emergency issues call your: Primary Care Provider Call Non-Emergent contact if: you have a fever, your pain is not controlled, your pain is worsening, your pain is unusual for you, wound has increased drainage, wound has increased redness, wound has increased pain, you have any medication questions . . "Provider Documentation" section prepared by Justus Rayo. .
== END 2017-12-30 15:53 | disposition home or self-care (01) | DRG 869 ==
LOC: C.EDB 18:48 → C.MS4W 23:54 → ENRESERV 12-28 00:10 → OBSVTOIN 12-29 19:04
PROVIDERS: ADMIT Internal Medicine; ATTEND Internal Medicine
PROC: 009U3ZX Drainage of Spinal Canal, Percutaneous Approach, Diagnostic (ICD-10-PCS; principal; 2017-12-28)
DX: A69.20 Lyme disease, unspecified (principal); J20.9 Acute bronchitis, unspecified; E87.6 Hypokalemia; M54.9 Dorsalgia, unspecified; G89.29 Other chronic pain; F17.200 Nicotine dependence, unspecified, uncomplicated; Z79.899 Other long term (current) drug therapy

== ENCOUNTER 2019-10-25 07:55 | Inpatient (IN) ==
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
[~2019-10-25 07:55] MED LIST changes: +ACETAMINOPHEN 500 MG TAB PO SCH; +CEFAZOLIN 1000MG 1,000 MG/7.5 ML SYR IV SCH; +CeleBREX 200 MG CAP PO SCH; -GABA-113 PO; +GABAPENTIN 900 MG DOSE PO SCH; +SODIUM CHLORIDE 0.9% 1000ML IV SCH; -ZLF50 PO
[2019-10-25 08:50] LABS: BUN Creatinine Ratio 16.1 (10-20); Calcium 9.7 mg/dl (8.5-10.1); Est GFR (African American) 24.4; Est GFR (Non-African American) 21.1; Potassium 3.9 mmol/L (3.5-5.1)
[2019-10-25] MEDS ORDERED: ATROPINE SULFATE 0.1 MG/ML 10ML SYR IV PRN (09:18)
[2019-10-25] MEDS ORDERED: HYDROmorphone INJ 2 MG/ML SYR/VIAL IV PRN (09:18)
[2019-10-25] MEDS ORDERED: ONDANSETRON INJ 2 MG/ML 2 ML VIAL IV PRN ×2 (09:18→12:48)
[2019-10-25] MEDS ORDERED: fentaNYL citrate 100 MCG/2 ML VIAL IV PRN (09:18)
[2019-10-25] MEDS ORDERED: ePHEDrine sulfate 50 MG/ML AMP IV PRN (09:18)
--- NOTE | 2019-10-25 09:28 | History & Physical Bridge Note ---
Date of Service October 25, 2019 History & Physical Bridge Note I have examined the patient, reviewed the History & Physical and in the interval since the performance of the History & Physical I have noted the following changes of clinical significance: no changes noted
[2019-10-25] MEDS ORDERED: BUPIVACAINE/EPINEPHRINE 0.25% 1:200,000 30 ML VIAL ONE ×2 (09:53→11:11)
[2019-10-25] MEDS ORDERED: BACITRACIN INJ 50,000 UNIT VIAL ONE (09:54)
[2019-10-25] MEDS ORDERED: HYDROmorphone INJ 2 MG/ML SYR/VIAL ONE (10:12)
[2019-10-25] MEDS ORDERED: ONDANSETRON INJ 2 MG/ML 2 ML VIAL ONE ×2 (10:12→12:38)
[2019-10-25] MEDS ORDERED: SODIUM CHLORIDE 0.9% INJ 10 ML VIAL ONE (10:12)
[2019-10-25] MEDS ORDERED: NEOSTIGMINE METHYLSULFATE 5 MG/5 ML SYR ONE (10:12)
[2019-10-25] MEDS ORDERED: PROPOFOL IV EMULSION 10 MG/ML 20 ML VIAL IV ONE (10:12)
[2019-10-25] MEDS ORDERED: LIDOCAINE HCL 2% 2 ML VIAL/AMP(20MG/ML) INFIL ONE (10:12)
[2019-10-25] MEDS ORDERED: MIDAZOLAM HCL 1 MG/ML 2ML VIAL ONE (10:12)
[2019-10-25] MEDS ORDERED: DEXAMETHASONE SOD INJ 4 MG/ML VIAL ONE (10:12)
[2019-10-25] MEDS ORDERED: GLYCOPYRROLATE 0.2 MG/ML VIAL ONE ×2 (10:12→12:38)
[2019-10-25] MEDS ORDERED: fentaNYL citrate 100 MCG/2 ML VIAL ONE (10:12)
[2019-10-25] MEDS ORDERED: LIDOCAINE 2% JELLY 5 ML TUBE ONE (10:17)
[2019-10-25] MEDS ORDERED: DexMEDEtomidine HCL IV 100 MCG/ML VIAL ONE (10:17)
[2019-10-25] MEDS ORDERED: FLOSEAL HEMOSTATIC MATRIX 10ML TOP ONE (11:45)
[2019-10-25] MEDS ORDERED: ROCURONIUM BROMIDE 10 MG/ML 5 ML VIAL ONE (12:39)
[2019-10-25] MEDS ORDERED: METOCLOPRAMIDE HCL INJ 5 MG/ML 2 ML VIAL IV PRN (12:48)
[2019-10-25] MEDS ORDERED: DO NOT ADMINISTER FLU VACCINE PRN (12:48)
[2019-10-25] MEDS ORDERED: SOD PHOSPHATE/SOD BIPHOSPHATE ENEMA 132 ML BTL PR PRN (12:48)
[2019-10-25] MEDS ORDERED: LORazepam 0.5 MG TAB PO PRN (12:48)
[2019-10-25] MEDS ORDERED: ACETAMINOPHEN 500 MG TAB PO PRN (12:48)
[2019-10-25] MEDS ORDERED: DO NOT ADMINISTER PNEUMOCOCCAL VACCINE PRN (12:48)
[2019-10-25] MEDS ORDERED: FAMOTIDINE 20 MG TAB PO PRN (12:48)
[2019-10-25] MEDS ORDERED: ACETAMINOPHEN 1,000 MG/100 ML VIAL IV PRN (12:48)
[2019-10-25] MEDS ORDERED: NALOXONE HCL 0.4 MG/1 ML VIAL/CARP IV PRN (12:48)
[2019-10-25] MEDS ORDERED: ONDANSETRON 4 MG OD TAB PO PRN (12:48)
[2019-10-25] MEDS ORDERED: MAGNESIUM HYDROXIDE SUSP 30 ML UDC PO PRN (12:48)
[2019-10-25] MEDS ORDERED: PROMETHAZINE HCL 12.5 MG in SODIUM CHLORIDE 0.9% 50 ML IV PRN (12:48)
[2019-10-25] MEDS ORDERED: ALUMINUM/MAGNESIUM SUSP 30 ML UDC PO PRN (12:48)
[2019-10-25] MEDS ORDERED: HYDROmorphone INJ 1 MG/ML SYRINGE IV PRN (12:48)
[2019-10-25] MEDS ORDERED: bisacodyL 10 MG SUPP PR PRN (12:48)
[2019-10-25] MEDS ORDERED: HYDROmorphone INJ 0.5 MG/0.5 ML SYR IV PRN (12:48)
[2019-10-25] MEDS ORDERED: LORazepam 0.5 MG/1 ML VIAL IV PRN (12:48)
--- NOTE | 2019-10-25 12:48 | Operative Report ---
Post Operative Report Pre & Post Diagnosis Operation Date: 10/25/19 10:00 Pre-Op Diagnosis: Lumbar radiculopathy; dysfunction of spinal cord stimulator Post-Op Diagnosis: Lumbar radiculopathy; dysfunction of spinal cord stimulator Operation Date: 11/03/19 08:50 <No data on this case meets the specified criteria> I identified the patient and participated in the time-out.: Yes Procedure Operation Date: 10/25/19 10:00 Actual Procedures #1 removal of dorsal column stimulator and leads. #2 lumbar decompression with bilateral medial facetectomies foraminotomies L5-S1. #3 posterior spinal fusion L5-S1. #4 placement posterior instrumentation L5-S1. #5 interbody fusion L5-S1 peer #6 placed a peek cage 11 x 22 mm at L5-S1. #7 placement of locally harvested morselized autograft in the posterior lateral gutters. #8 placement infuse collagen sponge, master graft in the posterior gutters and ostial amp interbody space. Operation Date: 11/03/19 08:50 <No data on this case meets the specified criteria> Surgeon Soham Shearer, Forensic Document Examiner Marilu Sanabria Estimated Blood Loss 100 Findings Consistent with Post-Op Diagnosis Specimens None Indications This is a 54-year-old female with above-mentioned diagnosis. After failing stents a course of nonoperative care having continued marked decline in neurologic status she is here for the above-mentioned procedure. Description of Procedure Patient was met with preoperatively case discussed all questions addressed but that the patient was taken back to operative suite underwent an patient placed in a prone position the Abdelrahman table on top of the River frame. All bony prominences well-padded eyes inspected to ensure no external pressure placed upon the. This point the lumbar spine was prepped and draped in normal sterile fashion. I then proceeded move the dorsal column stimulator battery on the left flank. I did have to make 3 additional small incisions over the leads as they were sewn into place in both the upper and lower regions of the lumbar spine. After removal of all leads and dorsum stimulator battery. Incision was made over the L5-S1 level. Sharp dissection with assistance of Bovie cautery performed down to and exposing the lamina and transverse processes of L5 and the sacral ala bilaterally. From a caudal cephalad fashion complete laminectomy of L5 including bilateral medial facetectomies and foraminotomies was performed. Pedicle screws were then placed in L5 and S1 levels bilaterally with assistance of fluoroscopy and the appropriately sized markell placed. Bilateral transforaminal portion left complete discectomy was performed including removal of all herniated fragments particularly caudal fragments under the S1 nerve root. Endplates were then curetted to subcortical bleeding bone and an 11 x 22 mm peek cage filled with osteo-bone graft tapped in position. The rods and locked into final position bilaterally. The transverse processes of L5 and sacral ala were then burred to subcortical bleeding bone. Infuse collagen sponge master graft local autograft was placed in the posterior gutters. 15 round MAYA drain inserted. Incision was then closed with 1 Vicryl in the fascia 2-0 Vicryl subcutaneously and 4 Monocryl for final skin closure. This included the additional incisions. Steri-Strip sterile dressings placed. Patient will continue PACU stable condition. Please note Marilu Sanabria was present at the entire procedure involved the patient positioning complex portions of the surgery and final skin closure. Lastly spinal cord monitoring was utilized that the procedure no changes noted. I attest to the content of the Intraoperative Record and any orders documented therein. Any exceptions are noted below.
--- NOTE | 2019-10-25 14:36 | Fluoroscopy Report ---
FL lumbar spine 2-3V CLINICAL HISTORY: 54 years-old Female presenting with L5-S1 DECOMPRESSION AND FUSION. TECHNIQUE: 2 fluoroscopic image(s) recorded as part of an intraoperative procedure. COMPARISON: 07/10/2014. FINDINGS/IMPRESSION: Posterior bilateral transpedicular screw and markell fixation of L5-S1 with interbody spacer and L5 abdullahi ectomy. Normal anatomic alignment. Please see surgical report for further details. Fluoroscopy dosage (mGy): 9.33. Fluoroscopy time: 19.6 seconds. Number or time of high level fluoroscopy (HLF), digital spot, or digital subtraction images: 0. ACT 112: Negative or not required by law. Electronically signed by: Miguel Mars M.D. 10/25/2019 2:35 PM
--- NOTE | 2019-10-25 15:29 | Anesthesiology Progress Note ---
Date of Service October 25, 2019 Anesthesia Post Procedure Vital Signs Vital Signs: Temp Pulse Pulse Resp BP BP Pulse Ox 10/25/19 14:40 36.4 C L 54 L 18 94/60 L 95 10/25/19 14:30 54 L 18 97/58 L 97 10/25/19 14:20 55 L 20 114/59 L 99 10/25/19 14:10 54 L 20 112/59 L 99 10/25/19 14:00 51 L 15 97/41 L 99 10/25/19 13:50 52 L 12 94/53 L 99 10/25/19 13:40 60 18 106/59 L 99 10/25/19 13:30 36.8 C 64 15 113/56 L 98 10/25/19 09:07 37 C 65 20 126/75 98 Transfer of Care Handoff Completed per policy Notes Mental Status: alert / awake / arousable and participated in evaluation Patient Amnestic to Procedure: Yes Nausea / Vomiting: adequately controlled Pain: adequately controlled Airway Patency, RR, SpO2: stable & adequate BP & HR: stable & adequate Hydration State: stable & adequate Anesthetic Complications: no major complications apparent and Pt Satisfied with anesthetic care
[2019-10-25] MEDS: LACTATED RINGER'S 1,000 ML IV SCH (15:30)
[2019-10-25] MEDS: GABAPENTIN 800 MG TAB PO SCH ×2 (18:11→21:53)
[2019-10-25] MEDS: OXYCODONE HCL IR 5 MG TAB (IMMEDIATE RELEASE) PO PRN ×2 (19:02→23:51)
[2019-10-25] MEDS: CEFAZOLIN 1000MG 1,000 MG/7.5 ML SYR IV SCH (19:20)
[2019-10-25] MEDS: DOCUSATE SODIUM/SENNA 50/8.6MG TAB PO SCH (21:53)
[2019-10-26] MEDS: LACTATED RINGER'S 1,000 ML IV SCH (01:42)
[2019-10-26] MEDS: TRAMADOL HCL 50 MG TABLET PO PRN ×2 (01:46→06:00)
[2019-10-26] MEDS: CEFAZOLIN 1000MG 1,000 MG/7.5 ML SYR IV SCH (01:54)
[2019-10-26] MEDS: POLYETHYLENE (MIRALAX) 17 GM PACK PO SCH ×3 (05:04→17:29)
[2019-10-26 07:24] LABS: Basophils # (auto) 0.01 K/uL (0-0.2); Basophils % (auto) 0.1 %; Eosinophils # (auto) 0.01 K/uL (0-0.5); Eosinophils % (auto) 0.1 %; Hematocrit (blood only) 28.3 % (37-47); Hemoglobin 9.6 g/dL (12.0-16.0); Immature Granulocytes # (auto) 0.01 K/uL (0.00-0.02); Immature Granulocytes % (auto) 0.1 %; Lymphocytes # (auto) 1.41 K/uL (1.2-3.4); Lymphocytes % (auto) 17.7 %; Mean Corpuscular Hemoglobin 33.3 pg (25-34); Mean Corpuscular Hgb Conc 33.9 g/dL (32-36); Mean Corpuscular Volume 98.3 fL (80-100); Monocytes # (auto) 0.77 K/uL (0.11-0.59); Monocytes % (auto) 9.7 %; Neutrophils # (auto) 5.76 K/uL (1.4-6.5); Neutrophils % (auto) 72.3 %; Platelet Count 242 K/uL (130-400); RDW Coefficient of Variation 13.3 % (11.5-14.5); RDW Standard Deviation 47.4 fL (36.4-46.3); Red Blood Count 2.88 M/uL (4.2-5.4); White Blood Count 7.97 K/uL (4.8-10.8)
--- NOTE | 2019-10-26 07:42 | Anesthesiology Progress Note ---
Date of Service October 26, 2019 Anesthesia Post Procedure Vital Signs Vital Signs: Temp Pulse Pulse Resp BP BP Pulse Ox 10/26/19 07:21 36.4 C L 58 L 18 100/58 L 95 10/26/19 03:08 36.5 C 71 20 134/75 93 10/25/19 22:31 36.4 C L 51 L 16 114/55 L 95 10/25/19 19:33 36.5 C 54 L 16 119/61 95 10/25/19 18:15 36.9 C 62 20 112/64 94 10/25/19 17:10 36.3 C L 48 L 16 105/64 96 10/25/19 16:09 36.3 C L 46 L 16 102/64 96 10/25/19 15:40 36.3 C L 45 L 16 101/62 96 10/25/19 15:10 36.3 C L 61 16 101/62 95 10/25/19 14:40 36.4 C L 54 L 18 94/60 L 95 10/25/19 14:30 54 L 18 97/58 L 97 10/25/19 14:20 55 L 20 114/59 L 99 10/25/19 14:10 54 L 20 112/59 L 99 10/25/19 14:00 51 L 15 97/41 L 99 10/25/19 13:50 52 L 12 94/53 L 99 10/25/19 13:40 60 18 106/59 L 99 10/25/19 13:30 36.8 C 64 15 113/56 L 98 10/25/19 09:07 37 C 65 20 126/75 98 Pain Intensity Left Leg: Pain Intensity: 6 Transfer of Care Handoff Completed per policy Notes Mental Status: alert / awake / arousable Nausea / Vomiting: adequately controlled Pain: adequately controlled Airway Patency, RR, SpO2: stable & adequate BP & HR: stable & adequate Hydration State: stable & adequate Anesthetic Complications: no major complications apparent and Pt Satisfied with anesthetic care
[2019-10-26] MEDS: OXYCODONE HCL IR 5 MG TAB (IMMEDIATE RELEASE) PO PRN ×3 (07:43→19:16)
[2019-10-26 07:49] LABS: BUN Creatinine Ratio 15.2 (10-20); Calcium 8.5 mg/dl (8.5-10.1); Est GFR (African American) 26.8; Est GFR (Non-African American) 23.2; Potassium 4.3 mmol/L (3.5-5.1)
--- NOTE | 2019-10-26 09:03 | Orthopedic Progress Note ---
Date of Service October 26, 2019 Assessment & Plan (1) Lumbar radiculopathy: This time we will continue physical therapy monitor her MAYA output hopefully discharge home in the next few days. Present on Admission?: Yes Admission and Anticipated Discharge Date Admission Date: October 25, 2019 Subjective Back pain is controlled left leg symptoms improved. Physical Exam Physical Exam: Patient is up and ambulating good strength testing. Results & Data ([facility]) Vital Signs (Past 12 Hours) Vital Signs Temp Pulse Pulse Resp BP Pulse Ox 10/26/19 07:21 36.4 C L 58 L 18 100/58 L 95 10/26/19 03:08 36.5 C 71 20 134/75 93 10/25/19 22:31 36.4 C L 51 L 16 114/55 L 95
[2019-10-26] MEDS: GABAPENTIN 800 MG TAB PO SCH ×3 (09:10→21:10)
[2019-10-26] MEDS ORDERED: ROPINIROLE HCL 5 MG TABLET PO SCH (21:00)
[2019-10-26] MEDS: DOCUSATE SODIUM/SENNA 50/8.6MG TAB PO SCH (21:10)
[2019-10-27] MEDS: OXYCODONE HCL IR 5 MG TAB (IMMEDIATE RELEASE) PO PRN (08:41)
[2019-10-27] MEDS: GABAPENTIN 800 MG TAB PO SCH (08:41)
--- NOTE | 2019-10-27 10:04 | Discharge Summary ---
Date of Service October 27, 2019 Admission HPI Per Admitting Provider This is a 54-year-old female who presents with marked decline in status over the past several months. She denies any precipitating trauma fall or event. She describes pain involving the lumbosacral junction in the left buttock posterior lateral thigh extending to the foot. Is been progressive. She is failed extensive course of nonoperative care. She had a dorsal column stimulator placed in 2010. Now she is noting marked inability to ambulate she is developed a foot drop to the left lower extremity and is unable to weight-bear. Principal Diagnosis Lumbar spinal stenosis with neurogenic claudication Discharge Data Allergies Allergy/AdvReac Type Severity Reaction Status Date / Time No Known Allergies Allergy Verified 08/18/19 13:40 Consultations 10/25/19 12:48 Consult Case Management - Discharge Planning Routine Procedures Performed Operation Date: 10/25/19 10:00 Actual Procedures p L5-S1 Decompression Fusion, Spinal Cord Monitoring(Not Applicable) - Soham Shearer DO s Dorsal Stim Removal(Not Applicable) - Soham Shearer DO Operation Date: 11/03/19 08:50 <No data on this case meets the specified criteria> Ordered Studies 10/25/19 10:00 FL fluoroscopy <1hr Routine [place] lumbar spine 2-3V Routine Hospital Course (1) Lumbar radiculopathy: Patient underwent lumbar decompression fusion tolerated this well was taken to the orthopedic floor possibly. Postop day 1 she was up and ambulating leg pain improved she progressed to postop day #2. Strength intact. Pain controlled. Subsequently discharged home with home health for drain management. Discharge orders and instructions from the chart for further view. Total Time Total Time Spent Total Time Spent (In Minutes): 20 minutes Discharge Plan Discharge Items Patient Disposition: Home - Home Health Services Reason For Visit: RADICULOPATHY, LUMBAR REGION Discharge Diagnosis: Lumbar spinal stenosis Activity: As commented below Non-emergency contact: Primary Care Provider Call non-emergency contact if: you have any medication questions Follow-up/Referrals: Isiah Roberts MD [Primary Care Provider] - Diet: Regular Addtl Attending Provider Instructions: ACTIVITY RECOMMENDATIONS: SELF CARE INSTRUCTIONS AFTER THORACIC/LUMBAR FUSIONS 1. You may walk to your tolerance. It is good exercise for your legs and back. Expect some back and intermittent leg aches and pains. 2. You may perform "counter-top" level activities (make a sandwich, quyen with a project, etc.). 3. No bending or lifting of more than 10 pounds or back twisting of any nature (roll like a log when turning in bed). 4. You may ride in a car for 20-30 minutes at a time. No driving until after your first visit with your doctor. 5. Frequent changes of position and restricting sitting to 30 minutes at a time will help limit the amount of back spasms and stiffness you may experience. 6. You may discontinue the use of ambulatory aids (cane, crutches, etc.) once your strength and confidence allow. 7. You may solar system installer the shower and let water strike your incision when you arrive home at least once daily. Do not take a tub bath, sit in a hot tub or go into a swimming pool until after your first recheck in the office. SPECIAL CARE INSTRUCTIONS: VERY IMPORTANT TO READ AND REVIEW A. Your surgical incision has been closed with a cosmetic suture under the skin that will dissolve in about 6 weeks. In 14 days, you can use a pair of clean scissors and cut the suture that is left outside of the skin at the ends of your incision. 1. The small skin tapes can be removed 7 days after surgery if they have not fallen off by that point. 2. You may keep the wound open to air as much as possible to promote healing after post-op day number 5 unless told otherwise by your doctor. 3. If you think the wound looks like it is becoming infected (redness or worsening drainage) and/or you are experiencing fever, chill or worsening back pain and muscle spasms, contact the office so that we may evaluate you as soon as possible. B. Complications are uncommon, but please contact us if you have any signs or symptoms of: 1. wound infection (fever higher than 102.5 degrees F, redness, separation of wound, drainage, or increasing pain from the incision) 2. blood clots in legs (pain, swelling, redness and warmth in legs) 3. urinary tract infection (fever higher than 102.5 degrees F, burning upon urination or increased frequency of urination) 4. nerve problems (inability to walk on your toes or heels, numbness, loss of bowel or bladder control) 5. any other symptoms that concern you C. Please call the office at if you have any concerns or questions about your operation or recovery. D. No smoking! Smoking drastically decreases the chance of a solid fusion. E. Do not take any anti-inflammatory medications (Indocin, Advil, Motrin, Aspirin, Naprosyn, etc.) as these may inhibit the chance of a solid fusion. Tylenol is okay to take for pain. MANAGING PAIN AFTER SPINAL SURGERY 1. Narcotic medication is intended for short-term use and will be provided for surgical pain. Surgical pain usually lasts for a period of 4-6 weeks. Narcotic medication includes Percocet, Vicodin, Darvocet, Tylenol #3 or Lortab. 2. Longer-term pain is more appropriately treated with non-narcotic medication such as Tylenol ES. 3. Muscle spasm is not appropriately treated with narcotics. Muscle relaxers such as Soma, Flexeril or Skelaxin can be used along with Tylenol ES. 4. Remember that we all live with some "aches and pains". This is not unusual or uncommon after an injury or as we get older. a. Back pain is expected and may include muscle spasms for 4 to 6 weeks after surgery. The pain should gradually improve. If the pain worsens for no apparent reason, please contact the office. b. Intermittent leg pain may also be experienced and should not be concerned about unless it worsens for no apparent reason. If so, please contact the office. 5. We will provide appropriate medication within the normal guidelines of their prescribed use. We will also be very cautious and aware of potential abuse and extended duration of patients' medication needs. a. Pain medications are for your comfort and to assist with sleep and rest so that the tissue can heal. They are not provided in order to return to normal activity and should not be used through the day. To do so or worsening pain at night can result from ongoing tissue damage and development of tolerance to the prescribed medicine. 6. Please allow 2-3 days to process refills. Prescriptions will not be mailed but must be picked up at the office. FOLLOW UP VISIT: Keep your scheduled follow-up appointment. Any questions, please call the office at . Pending Studies at Discharge: No Stand-Alone Forms[facility], Smoking Cessation Medications and DC Order Prescriptions: New tramadol 50 mg tablet 50 mg PO Q6H PRN (Reason: pain, moderate) Qty: 20 RF: 0 oxycodone 5 mg tablet 5 mg PO Q6H PRN (Reason: pain, severe) Qty: 20 RF: 0 Continued gabapentin 800 mg tablet 800 mg PO TID RF: 0 Discharge Orders: Discharge Order (Routine); Ordered 10/27/19 Ordered By: Soham Henry/Other Patient Handouts: DVT Prevention Admission Data Admit Date/Time: 10/25/19 12:48 Attending Provider: Soham Shearer Admit Provider: Soham Shearer Primary Care Provider: Isiah Roberts Other Interventions: Discharge Summary Assessment (RN) Last Done: 10/27/19 09:49
== END 2019-10-27 11:49 | disposition home health service (06) | DRG 455 ==
LOC: ASU 07:55 → 3N 12:48
DX: M54.16 Radiculopathy, lumbar region

== ENCOUNTER 2023-08-20 12:08 | Inpatient (IN) ==
[2023-08-20 12:56] LABS: Basophils # (auto) 0.07 K/uL (0.00-0.20); Basophils % (auto) 0.9 %; Eosinophils # (auto) 0.04 K/uL (0.00-0.50); Eosinophils % (auto) 0.5 %; Hematocrit (blood only) 41.3 % (37.0-47.0); Hemoglobin 13.9 g/dl (12.0-16.0); Immature Granulocytes # (auto) 0.03 K/uL (0.01-0.20); Immature Granulocytes % (auto) 0.4 %; Lymphocytes # (auto) 1.37 K/uL (1.20-3.40); Lymphocytes % (auto) 18.3 %; Mean Corpuscular Hemoglobin 31.9 pg (25.0-34.0); Mean Corpuscular Hgb Conc 33.7 g/dL (32.0-36.0); Mean Corpuscular Volume 94.7 fL (80.0-100.0); Mean Platelet Volume 10.4 fL (9.4-12.4); Monocytes # (auto) 0.52 K/uL (0.11-0.59); Monocytes % (auto) 6.9 %; Neutrophils # (auto) 5.47 K/uL (1.40-6.50); Platelet Count 279 K/uL (130-400); RDW Coefficient of Variation 11.7 % (11.5-14.5); RDW Standard Deviation 40.4 fL (36.4-46.3); Red Blood Count 4.36 M/uL (4.20-5.40)
[2023-08-20 13:20] LABS: Albumin Globulin Ratio 1.6 (0.9-2); Albumin Level 4.6 gm/dl (3.4-5.0); BUN Creatinine Ratio 9.3 (10-20); Bilirubin,Total 0.6 mg/dl (0.2-1.0); Calcium 9.7 mg/dl (8.6-10.3); Creatinine Clr Calc Pharmacy 38.7 ml/min; Est GFR (African American) 48.6 ml/min; Est GFR (Non-African American) 41.9 ml/min; Globulin 2.8 gm/dl (2.5-4.0); Magnesium 1.9 mg/dl (1.7-2.4); Potassium 4.3 mmol/L (3.5-5.1); Total Protein 7.4 gm/dl (6.0-8.3)
[2023-08-20 13:20] LABS: Adenovirus PCR Not Detected (NotDetected); Bordetella parapertussis PCR Not Detected (NotDetected); Bordetella pertussis PCR Not Detected (NotDetected); Chlamydia pneumoniae PCR Not Detected (NotDetected); Coronavirus 229E PCR Not Detected (NotDetected); Coronavirus CoV-2 (COVID19)PCR Not Detected (NotDetected); Coronavirus HKU1 PCR Not Detected (NotDetected); Coronavirus NL63 PCR Not Detected (NotDetected); Coronavirus OC43PCR Not Detected (NotDetected); Human Metapneumovirus PCR Not Detected (NotDetected); Influenza A PCR Not Detected (NotDetected); Influenza B PCR Not Detected (NotDetected); Mycoplasma pneumoniae PCR Not Detected (NotDetected); Parainfluenza Virus 1 PCR Not Detected (NotDetected); Parainfluenza Virus 2 PCR Not Detected (NotDetected); Parainfluenza Virus 3 PCR Not Detected (NotDetected); Parainfluenza Virus 4 PCR Not Detected (NotDetected); Respiratory Syncytial VirusPCR Not Detected (NotDetected); Rhinovirus/Enterovirus PCR Not Detected (NotDetected)
[2023-08-20 13:21] LABS: Troponin I High Sensitivity 4.8 pg/ml (0-14)
[2023-08-20] MEDS: methylPREDNISolone 125 MG/2 ML VIAL IV STA (13:30)
[2023-08-20] MEDS: cefTRIAXone SODIUM 1,000 MG/50 ML BAG IV STA (13:30)
[2023-08-20] MEDS: ALBUT/IPRATROP 3MG/0.5MG NEB 3 ML VIAL NEB STA ×3 (13:37→15:14)
[2023-08-20] MEDS: SODIUM CHLORIDE 0.9% 1,000 ML IV ONE (13:37)
--- NOTE | 2023-08-20 13:43 | XRay Report ---
XR chest 1V not portable HISTORY: Sepsis COMPARISON: Chest 08/25/2019. FINDINGS: The lungs are hyperexpanded. The heart is normal in size. No pleural effusions. No pneumoth orax. Epigastric surgical clips are noted. No evidence for pulmonary edema. No acute fractures. Emphy sema. Subtle small patchy densities suggested within the right upper lobe and right lung base. The le ft lung is clear. IMPRESSION: 1. Subtle small patchy densities suggested within the right upper lobe and right lung base. This may represent a developing pneumonitis. Follow-up PA and lateral views of the chest in one to 2 months is recommended to ensure resolution. 2. Emphysema. ACT 112: Negative or not required by law. Electronically signed by: Ivan Morrow M.D. 08/20/2023 1:42 PM
[2023-08-20] MEDS: KETOROLAC TROMETHAMINE 15 MG/ML VIAL IV ONE (13:47)
[2023-08-20] MEDS: ACETAMINOPHEN 1,000 MG/100 ML VIAL IV STA (13:48)
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
[2023-08-20] MEDS: ALBUT/IPRATROP 3MG/0.5MG NEB 3 ML VIAL NEB ONE (15:10)
[2023-08-20] MEDS: DOXYCYCLINE HYCLATE 100 MG CAP PO STA (15:14)
[2023-08-20] MEDS: MAGNESIUM SULFATE / D5W 1 GM/100 ML BAG IV STA (15:14)
[2023-08-20] MEDS: SODIUM CHLORIDE 0.9% 1,000 ML IV SCH (15:45)
[2023-08-20 16:05] LABS: Partial Thromboplastin Ratio 1.1; Partial Thromboplastin Time 32 Seconds (21-31); Prothrombin Time 11.1 Seconds (9.0-12.0)
[2023-08-20] MEDS: ALBUTEROL 0.083% NEBU SOLN 3 ML VIAL NEB STA (16:25)
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
[2023-08-20] MEDS ORDERED: ALUMINUM/MAGNESIUM SUSP 30 ML UDC PO PRN (17:33)
[2023-08-20] MEDS ORDERED: MAGNESIUM HYDROXIDE SUSP 30 ML UDC PO PRN (17:33)
[2023-08-20] MEDS ORDERED: ONDANSETRON INJ 2 MG/ML 2 ML VIAL IV PRN (17:33)
[2023-08-20] MEDS: AZITHROMYCIN 250 MG TAB PO SCH (18:23)
[2023-08-20] MEDS: ALBUT/IPRATROP 3MG/0.5MG NEB 3 ML VIAL NEB SCH (20:02)
[2023-08-20] MEDS: COUGH DROP (SUGAR FREE) LOZ 24 LOZ/1 BOX BUCCAL PRN (20:57)
[2023-08-20] MEDS: ENOXAPARIN INJ 40 MG/0.4 ML SYR SQ SCH (20:59)
[2023-08-20] MEDS: GABAPENTIN 300 MG CAP PO SCH (20:59)
[2023-08-20] MEDS: oxyCODONE/ACETAMINOPHEN 5mg/325mg TAB PO PRN (20:59)
[2023-08-20] MEDS: guaiFENesin 600 MG TABCR PO SCH (20:59)
[2023-08-20] MEDS: methylPREDNISolone 40 MG in SYRINGE 0 ML IV SCH (21:00)
[2023-08-20] MEDS: rOPINIRole HCL 1 MG TABLET PO SCH (21:00)
[2023-08-20] MEDS ORDERED: PNEUMOCOCCAL VACCINE (PCV20) 20-VAL CONJ-DIP CRM/PF 0.5 ML SYR IM ONE (21:00)
[2023-08-20] MEDS: CHLORASEPTIC (PHENOL) 1.4% SOLN 180 ML BTL MT PRN (21:10)
[2023-08-21 07:00] LABS: Hematocrit (blood only) 34.5 % (37.0-47.0); Hemoglobin 11.7 g/dl (12.0-16.0); Mean Corpuscular Hemoglobin 31.7 pg (25.0-34.0); Mean Corpuscular Hgb Conc 33.9 g/dL (32.0-36.0); Mean Corpuscular Volume 93.5 fL (80.0-100.0); Mean Platelet Volume 10.6 fL (9.4-12.4); Platelet Count 251 K/uL (130-400); RDW Coefficient of Variation 11.7 % (11.5-14.5); RDW Standard Deviation 39.6 fL (36.4-46.3); Red Blood Count 3.69 M/uL (4.20-5.40); White Blood Count 9.57 K/ul (4.8-10.8)
[2023-08-21 07:06] LABS: BUN Creatinine Ratio 14.8 (10-20); Bilirubin,Total 0.4 mg/dl (0.2-1.0); Calcium 9.4 mg/dl (8.6-10.3); Creatinine Clr Calc Pharmacy 36.4 ml/min; Est GFR (Non-African American) 38.9 ml/min; Magnesium 2.1 mg/dl (1.7-2.4); Potassium 4.1 mmol/L (3.5-5.1)
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
[2023-08-21 07:47] LABS: Basophils # (auto) 0.01 K/uL (0.00-0.20); Basophils % (auto) 0.1 %; Immature Granulocytes # (auto) 0.04 K/uL (0.01-0.20); Immature Granulocytes % (auto) 0.4 %; Lymphocytes # (auto) 0.61 K/uL (1.20-3.40); Lymphocytes % (auto) 6.4 %; Monocytes # (auto) 0.24 K/uL (0.11-0.59); Monocytes % (auto) 2.5 %; Neutrophils # (auto) 8.67 K/uL (1.40-6.50); Neutrophils % (auto) 90.6 %; RBC Morphology Unremarkable
--- NOTE | 2023-08-21 08:04 | Electrocardiogram Report ---
Test Reason : Blood Pressure : / mmHG Vent. Rate : 063 BPM Atrial Rate : 063 BPM P-R Int : 120 ms QRS Dur : 064 ms QT Int : 396 ms P-R-T Axes : 077 081 068 degrees QTc Int : 405 ms Normal sinus rhythm When compared with ECG of 25-AUG-2019 10:39, No significant change was found Confirmed by Max Elaine ([id number]) on 08/21/2023 8:04:38 AM Referred By: REFERRED SELF Confirmed By:Max Elaine
[2023-08-21] MEDS: ACETAMINOPHEN 325 MG TAB PO PRN (08:34)
[2023-08-21] MEDS: NICOTINE 14 MG/24 HR PATCH TD SCH (08:37)
[2023-08-21] MEDS: cefTRIAXone SODIUM 2,000 MG in DEXTROSE 5 % MINI-B 50 ML IV SCH (08:37)
[2023-08-21] MEDS: UMECLIDINIUM BROMIDE 62.5MCG/BLISTER 7 PUFFS/INHALER INH SCH (08:38)
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
--- OUTSIDE RECORDS SUMMARY | 2023-08-21 11:30 | External Medical Summary | Summary of Care ---
Author Name Unknown Organization [facility] Address [address] [place] [address] Phone [phone] Care Team Providers Care Head Of Biology Name Role Phone Jalen Ribeiro Primary Care Provider + [phone] Reason for Visit * Reason Onset Date Comments Medication Refill 06/11/2023 Encounter Details Date Type Department Care Team (Late st Contact Info) Description 06/11/2023 Refill Family Medicine [address] [phone] Shandra Alcantar MD [address] [place] [address] [place] [address] COPD exacerbation (HCC); Cough Allergies No known active allergiesdocumented as of this encounter (statuses as of 06/11/2023) Medications Medication Sig Dispensed Refills Start Date End Date Status Ipratropium-[place]bute rol 0.5-2.5 (3) MG/3ML Inhalation Solution (Duoneb)Indication s:COPD exacerbation (HCC) INHALE ONE VIAL VIA NEBULIZER EVERY 4 HOURS NEEDED FOR WHEEZING 360 mL 1 07/09/2020 Active Gabapentin 300 MG Oral Capsule (Neurontin)Indicat ions:Chronic back pain, unspecified back location, unspecified back pain laterality Take by mouth 1 Capsule in the morning AND 1 Capsule before bedtime. 60 Capsule 5 04/06/2022 Active oxyCODONE-Acetamin ophen 5-325 MG Oral Tablet (Percocet) Take 1 Tablet by mouth every 6 hours as needed (Pain). 30 Tablet 0 07/14/2022 Active Triamcinolone Acetonide 0.5 % External Cream (Aristocort) Apply topically to affected area 2 times a day. To affected area. 454 g 0 07/14/2022 Active Chantix Starting Month Lambert 0.5 MG X 11 & 1 MG X 42 Tablet Therapy Pack (Varenicline Tartrate (Starter)) Use as directed. 1 Each 0 07/14/2022 Active Varenicline Tartrate 1 MG Oral Tablet Take 1 Tablet by mouth in the morning and 1 Tablet before bedtime. As directed on box.. 60 Tablet 4 07/14/2022 Active Fluticasone-Salmet yanick 250-50 MCG/ACT Inhalation Aerosol Powder Breath Activated (Advair Diskus) Inhale 1 Puff by mouth in the morning and 1 Puff before bedtime. 60 Each 5 10/06/2022 Active predniSONE 10 MG Oral Tablet (Deltasone)Indicat ions:COPD exacerbation (HCC) Take 5 tabs for 2 days, 4 tabs for 2 days, 3 tabs for 2 days, 2 tabs for 2 days 1 tab for 2 days 30 Tablet 0 10/30/2022 Active Azithromycin 250 MG Oral Tablet (Zithromax Z-Lambert)Indications: COPD exacerbation (HCC) Take two tablets by mouth on first day, then 1 tablet daily until gone 6 Tablet 0 10/30/2022 Active SUMAtriptan Succinate 25 MG Oral Tablet (Imitrex)Indicatio ns:Migraine variant Take 2 tablets at onset of migraine and one tablet every 2 hours as needed, not more than 5 tablets in 24 hours 20 Tablet 1 12/10/2022 Active Incruse Ellipta 62.5 MCG/ACT Inhalation Aerosol Powder Breath Activated (umeclidinium [place])Indication s:COPD, mild (HCC) INHALE ONE PUFF EVERY DAY 90 Each 1 12/10/2022 Active rOPINIRole HCl 3 MG Oral Tablet Take 1 Tablet by mouth at bedtime. 1-3 hours before bedtime with food for restless legs 90 Tablet 1 06/03/2023 Active Albuterol Sulfate HFA 108 (90 Base) MCG/ACT Inhalation Aerosol SolutionIndication s:COPD exacerbation (HCC),Cough INHALE TWO PUFFS BY MOUTH EVERY 6 HOURS NEEDED FOR WHEEZING 18 g 1 06/11/2023 Active Albuterol Sulfate HFA 108 (90 Base) MCG/ACT Inhalation Aerosol SolutionIndication s:COPD exacerbation (HCC),Cough INHALE TWO PUFFS BY MOUTH EVERY 6 HOURS NEEDED FOR WHEEZING 18 g 1 06/25/2022 4 Discontinue d(Refill) documented as of this encounter (statuses as of 06/11/2023) Active Problems Problem Noted Date Diagnosed Date Stage 3b chronic kidney disease 07/14/2022 Migraine variant 08/09/2020 COPD, mild 08/09/2020 Chronic back pain 08/09/2020 Restless legs syndrome 08/09/2020 Renal insufficiency 09/13/2019 Lumbar degenerative disc disease 02/13/2015 History of compression fracture of spine 012 documented as of this encounter (statuses as of 06/11/2023) Resolved Problems Problem Noted Date Diagnosed Date Resolved Date Kidney disease, chronic, sta ge IV (GFR 15-29 ml/min) 12/18/2019 07/14/2022 Overview: Per CKD protocol Controlled substance agreement signed 01/04/2018 01/04/2018 Compression fracture of L1 lumbar vertebra 12/16/2011 01/04/2018 Lumbago 11/30/2011 04/15/2015 Fracture of T12 vertebra 11/30/201102/2015 Lumbar radiculitis 11/30/2011 5 ADVANCE DIRECTIVE INFORMATION 02/18/2007 07/14/2022 Overview: No, Advance Directive brochure given to patient at prior appointment. Cervicalgia 09/12/2002 02/13/2015 TEMPOROMANDIBULAR JOINT DISO RDERS, UNSPECIFIED 09/12/2002 01/04/2018 MIXED BENIGN TUMOR OF RIGHT PAROTID 04/10/2002 01/04/2018 UPPER DENTURES 04/10/2002 04/15/2015 documented as of this encounter (statuses as of 06/11/2023) Immunizations Name Administration Dates Next Due PPD 02/17/2011 Pneumococcal Polysaccharide PPV23 (Pneumovax) 10/27/2010 Seasonal Influenza, PF, 6 M & above, IM , (FluLaval or Fluzone) 08/09/2020,02/28/2019,03/09/2018 Seasonal Influenza, Split, I IV3, With Preserve, Inj 07/27/2011 TDAP (age 11 and older)(Adacel) 10/27/2010 documented as of this encounter Social History Tobacco Use Types Packs/Day Years Used Date Smoking Tobacco: Every Day Cigarettes 0.5 22 Smokeless Tobacco: Never Alcohol Use Standard Drinks/Week Comments Yes 0 (1 standard drink = 0.6 oz pur e alcohol) seldom PHQ-2 Answer Date Recorded PHQ-2 Score 0 02/21/2020 Hunger Vital Sign Answer Date Recorded Worried About Running Out of Food in the Last Ye ar Never true 01/26/2019 Ran Out of Food in the Last Year Never true 01/26/2019 Sex and Gender Information Value Date Recorded Sex Assigned at Not on file Gender Identity Not on file Sexual Orientation Not on file Job Start Date Occupation Industry Not on file Not on file Not on file documented as of this encounter Miscellaneous Notes * Telephone Encounter - Jalen Simpson RPh - 06/11/2023 6:40 PM ESTSigned Prescriptions: Disp Refills Albuterol Sulfate HFA 108 (90 Base) MCG/AC*18 g 1 Sig: INHALE TWO PUFFS BY MOUTH EVERY 6 HOURS NEEDED FOR WHEEZINGAuthorizing Provider: JALEN RIBEIRO User: JALEN SIMPSON documented in this encounter Plan of Treatment Scheduled Procedures Name Priority Associated Diagnoses Date/Ti me COLONOSCOPY FLEXIBLE PROXIMA L DIAGNOSTIC Recall Encounter for screening colonoscopy Health Maintenance Due Date Last Done Comments DISCUSS TOBACCO CESSATION (REFER TO SMARTSET #7994) 1965 Hepatitis B (1 of 3 - 3-dose series) 1965 COVID-19 Vaccine (#1) 1965 Alpha-1 Antitrypsin 1985 HPV/Co-Test 1997 Pneumococcal Vaccine: Pediatrics (0 to 5 Years) and At-Risk Patients (6 to 64 Years) (2 - PCV) 10/28/2011 10/27/2010 Cologuard 2012 Fecal Occult Blood Test 2012 Sigmoidoscopy 2012 Cervical Cancer Screening 02/17/2014 Pap Smear 02/17/2014 02/17/2011, 02/05, 04/12/2006, Additional history exists Zoster Vaccines (1 of 2) 2017 *COPD SEVERITY VERIFIED BY PFT 08/12/2020 DTaP,Tdap,and Td Vaccines (2 - Td or Tdap) 10/27/2020 10/27/2010 Depression Screening 02/20/2021 02/21/2020 CKD PHOS USE SMARTSET 06544 08/08/2022 03/0 09/2021, 08/09/2020, 08/30/2019, Additional history exists GFR 12/05/2022 06/07/2022, 04/07, 08/08/2021, Additional history exists Influenza Vaccine (FLU shot) (#1) 2023 08/09/2020, 02/28/2019, 03/09/2018, Additional history exists CKD HGB USE SMARTSET 79019 06/07/202306/07, 04/19/2022, 08/08/2021, Additional history exists Albumin/Creatinine Ratio 07/14/2023 023, 08/08/2021, 08/09/2020, Additional history exists Mammogram 07/28/2023 07/28/2022, 04/0 10/2015, 03/14/2015, Additional history exists O2 ASSESSMENT COMPLETED IN PAST YEAR FOR COPD 10/31/2023 10/30/2022 Diabetes Screening 06/07/2025 06/07/2022, 1 06/19/2021, 08/08/2021, Additional history exists Lipid Panel 08/08/2026 08/08/2021, 030 10/2020, 08/31/2014 Colonoscopy 01/13/2028 01/12/2018, 01/12/2018 Colorectal Cancer Screening 01/13/2028 GARDASIL-HPV IMMUNIZATION SERIES Aged Out No longer eligible based on patient's age to complete this topic MENINGOCOCCAL (MENACTRA/MENVEO) Aged Out No longer eligible based on patient's age to complete this topic documented as of this encounter Medical Devices Not on filedocumented as of this encounter Visit Diagnoses Diagnosis COPD exacerbation (HCC) Obstructive chronic bronchitis with exacerbation Cough documented in this encounter Advance Directives Documents on File Type Date Recorded 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
--- OUTSIDE RECORDS SUMMARY | 2023-08-21 11:30 | External Medical Summary | Summary of Care ---
Author Name Unknown Organization [facility] Address [address] [place] [address] Phone [phone] Care Team Providers Care Job Coaching Name Role Phone Amanda Cervantes DO Primary Care Provider + [phone] Reason for Visit * Reason Onset Date Comments Medication Refill 06/02/2023 Encounter Details Date Type Department Care Team (Late st Contact Info) Description 06/02/2023 Refill Family Medicine [address] [address] Amanda Cervantes DO [address] [place] [address] [place] [address] Allergies No known active allergiesdocumented as of this encounter (statuses as of 06/03/2023) Medications Medication Sig Dispensed Refills Start Date [...] before bedtime. 60 Capsule 5 04/06/2022 Active Albuterol Sulfate HFA 108 (90 Base) MCG/ACT Inhalation Aerosol SolutionIndication s:COPD exacerbation (HCC),Cough INHALE TWO PUFFS BY MOUTH EVERY 6 HOURS NEEDED FOR WHEEZING 18 g 1 06/25/2022 Active oxyCODONE-Acetamin ophen 5-325 MG Oral Tablet [...] MCG/ACT Inhalation Aerosol Powder Breath Activated (umeclidinium [place])Indication s:COPD, mild (HCC) INHALE ONE PUFF EVERY DAY 90 Each 1 12/10/2022 Active rOPINIRole HCl 3 MG Oral Tablet Take 1 Tablet by mouth at bedtime. 1-3 hours before bedtime with food for restless legs 90 Tablet 1 06/03/2023 Active rOPINIRole HCl 3 MG Oral Tablet Take 1 Tablet by mouth at bedtime. 1-3 hours before bedtime with food for restless legs 90 Tablet 1 12/14/2022 3 Discontinue d(Refill) documented as of this encounter (statuses as of 06/03/2023) Active Problems Problem Noted Date Diagnosed Date Stage 3b chronic kidney disease 07/14/2022 Migraine variant 08/09/2020 COPD, mild 08/09/2020 Chronic back pain 08/09/2020 Restless legs syndrome 08/09/2020 Renal insufficiency 09/13/2019 Lumbar degenerative disc disease 02/13/2015 History of compression fracture of spine 012 documented as of this encounter (statuses as of 06/03/2023) Resolved Problems Problem Noted Date Diagnosed Date [...] as of this encounter (statuses as of 06/03/2023) Immunizations Name Administration Dates Next Due PPD [...] encounter Miscellaneous Notes * Telephone Encounter - René Grossman MD - 06/03/2023 2:00 PM ESTSigned Prescriptions: Disp Refills rOPINIRole HCl 3 MG Oral Tablet 90 Tab*1 Sig: Take 1 Tablet by mouth at bedtime. 1-3 hours before bedtime with food for restless legs Authorizing Provider: RENÉ GROSSMAN * Telephone Encounter - Antonette Iraheta RN - 06/03/2023 1:54 PM ESTPending Prescriptions: Disp Refills rOPINIRole HCl 3 MG Oral Tablet 90 Tab*1 Sig: Take 1 Tablet by mouth at bedtime. 1-3 hours before bedtime with food for restless legs * Telephone Encounter - Nahed Khoury OSA - 06/02/2023 10:10 AM EST Did you pend patient's preferred pharmacy and medication before forwarding?yes Pharmacy: [facility], [address] [place] Pending Prescriptions: Disp Refills rOPINIRole HCl 3 MG Oral Tablet 90 Tab*1 Sig: Take 1 Tablet by mouth at bedtime. 1-3 hours before bedtime with food for restless legs Last Visit: 10/30/2022 (in office), Visit date not found (telemedicine) Next Visit: Visit date not found If no future appointments scheduled, and last appointment is greater than a year ago, please schedule patient for a follow-up appointment Last date the medication was ordered: 12.14.22 Is this request for a controlled substance?No Urine Drug Screen:No results found for this or any previous visit. Patient Phone Numbers Labs: Lab Results Component Value Date/Time CREAT 1.34 (A) 06/07/2022 12:00 AM CREAT 2.3 (H) 10/16/2019 08:27 AM POTASSIUM 4.2 06/07/2022 12:00 AM POTASSIUM 5.0 10/16/2019 08:27 AM TSH 0.82 08/31/2014 04:57 PM LDLCALC 132 (H) 08/08/2021 02:58 PM LDLCALC 147 (H) 08/31/2014 04:57 PM LDLDIRECT NOT APPLICABLE 08/31/2014 04:57 PM ALT 12 08/08/2021 02:58 PM ALT 30 01/04/2018 01:40 PM HGBA1C 4.8 08/09/2020 10:32 AM HGBA1C 4.5 06/18/2003 11:00 AM documented in this encounter Plan of Treatment Scheduled Procedures Name Priority Associated Diagnoses Date/Ti me COLONOSCOPY FLEXIBLE PROXIMA L DIAGNOSTIC Recall Encounter for screening colonoscopy Health Maintenance Due Date Last Done Comments DISCUSS TOBACCO CESSATION (REFER TO SMARTSET #0930) 1965 Hepatitis B (1 of 3 - [...] Screening 02/20/2021 02/21/2020 CKD PHOS USE SMARTSET 13488 08/08/2022 03/0 09/2021, 08/09/2020, 08/30/2019, Additional history exists GFR 12/05/2022 06/07/2022, 04/07, 08/08/2021, Additional history exists Influenza Vaccine (FLU shot) (#1) 2023 08/09/2020, 02/28/2019, 03/09/2018, Additional history exists CKD HGB USE SMARTSET 04668 06/07/202306/07, 04/19/2022, 08/08/2021, Additional history exists Albumin/Creatinine Ratio 07/14/2023 023, 08/08/2021, 08/09/2020, Additional history exists Mammogram 07/28/2023 07/28/2022, 04/0 10/2015, 03/14/2015, Additional history exists O2 ASSESSMENT COMPLETED IN PAST YEAR FOR COPD 10/31/2023 10/30/2022 Diabetes Screening 06/07/2025 06/07/2022, 1 06/19/2021, 08/08/2021, Additional history exists Lipid Panel 08/08/2026 08/08/2021, 03/0 10/2020, 08/31/2014 Colonoscopy 01/13/2028 01/12/2018, 01/12/2018 Colorectal Cancer Screening 01/13/2028 GARDASIL-HPV IMMUNIZATION SERIES Aged Out No longer eligible based on patient's age to complete this topic MENINGOCOCCAL (MENACTRA/MENVEO) Aged Out No longer eligible based on patient's age to complete this topic documented as of this encounter Medical Devices Not on filedocumented as of this encounter Advance Directives Documents on File Type Date Recorded 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
--- OUTSIDE RECORDS SUMMARY | 2023-08-21 11:30 | External Medical Summary | Summary of Care ---
Author Name Unknown Organization [facility] Address [address] [place] [address] Phone [phone] Care Team Providers Care Cigarette Paper Tester Name Role Phone Amanda Cervantes DO Primary Care Provider + [phone] Reason for Visit * Reason Onset Date Comments Health Maintenance 06/24/2023 Encounter Details Date Type Department Care Team (Late st Contact Info) Description 06/24/2023 Telephone Family Medicine [address] [address] Amanda Cervantes DO [address] [place] [address] [place] [address] Health Maintenance Allergies No known active allergiesdocumented as of this encounter (statuses as of 06/24/2023) Medications Medication Sig Dispensed Refills Start Date End Date Status Ipratropium-Albutero l 0.5-2.5 (3) MG/3ML Inhalation Solution (Duoneb)Indications: COPD exacerbation (HCC) INHALE ONE VIAL VIA NEBULIZER EVERY 4 HOURS NEEDED FOR WHEEZING 360 mL 1 07/09/2020 Active Gabapentin 300 MG Oral Capsule (Neurontin)Indicatio ns:Chronic back pain, unspecified back location, unspecified back pain laterality Take by mouth 1 Capsule in the morning AND 1 Capsule before bedtime. 60 Capsule 5 04/06/2022 Active oxyCODONE-Acetaminop hen 5-325 MG Oral Tablet (Percocet) Take 1 [...] on box.. 60 Tablet 4 07/14/2022 Active Fluticasone-Salmeter ol 250-50 MCG/ACT Inhalation Aerosol Powder Breath Activated (Advair Diskus) Inhale 1 Puff by mouth in the morning and 1 Puff before bedtime. 60 Each 5 10/06/2022 Active predniSONE 10 MG Oral Tablet (Deltasone)Indicatio ns:COPD exacerbation (HCC) Take 5 tabs for 2 days, 4 tabs for 2 days, 3 tabs for 2 days, 2 tabs for 2 days 1 tab for 2 days 30 Tablet 0 10/30/2022 Active Azithromycin 250 MG Oral Tablet (Zithromax Z-Lambert)Indications:CO PD exacerbation (HCC) Take two tablets by mouth on first day, then 1 tablet daily until gone 6 Tablet 0 10/30/2022 Active SUMAtriptan Succinate 25 MG Oral Tablet (Imitrex)Indications :Migraine variant Take 2 tablets at onset of migraine and one tablet every 2 hours as needed, not more than 5 tablets in 24 hours 20 Tablet 1 12/10/2022 Active Incruse Ellipta 62.5 MCG/ACT Inhalation Aerosol Powder Breath Activated (umeclidinium [place])Indications: COPD, mild (HCC) INHALE ONE PUFF EVERY DAY 90 Each 1 12/10/2022 Active rOPINIRole HCl 3 MG Oral Tablet Take 1 Tablet by mouth at bedtime. 1-3 hours before bedtime with food for restless legs 90 Tablet 1 06/03/2023 Active Albuterol Sulfate HFA 108 (90 Base) MCG/ACT Inhalation Aerosol SolutionIndications: COPD exacerbation (HCC),Cough INHALE TWO PUFFS BY MOUTH EVERY 6 HOURS NEEDED FOR WHEEZING 18 g 1 06/11/2023 Active documented as of this encounter (statuses as of 06/24/2023) Active Problems Problem Noted Date Diagnosed Date Stage 3b chronic kidney disease 07/14/2022 Migraine variant 08/09/2020 COPD, mild 08/09/2020 Chronic back pain 08/09/2020 Restless legs syndrome 08/09/2020 Renal insufficiency 09/13/2019 Lumbar degenerative disc disease 02/13/2015 History of compression fracture of spine 012 documented as of this encounter (statuses as of 06/24/2023) Resolved Problems Problem Noted Date Diagnosed Date [...] as of this encounter (statuses as of 06/24/2023) Immunizations Name Administration Dates Next Due PPD [...] encounter Miscellaneous Notes * Telephone Encounter - Allison Chow LPN - 06/24/2023 9:29 AM EST Care Gaps Comprehensive Care Outreach Last Office/Telemedicine Visit: 10/30/2022 (in office), Visit date not found (telemedicine) Next Office Visit: Visit date not found Hemoglobin AIC Results: Lab Results Component Value Date/Time HEMOGLOBIN A1C - [facility] 4.8 08/09/2020 10:32 AM HEMOGLOBIN A1C - [facility] 4.5 06/18/2003 11:00 AM Reviewed Health Maintenance below: Health Maintenance Topic Date Due Hepatitis B (1 of 3 - 3-dose series) Never done DISCUSS TOBACCO CESSATION (REFER TO SMARTSET #3291) Never done COVID-19 Vaccine (1) Never done Alpha-1 Antitrypsin Never done Pneumococcal Vaccine: Pediatrics (0 to 5 Years) and At-Risk Patients (6 to 64 Years) (2 - PCV) 10/28/2011 Cervical Cancer Screening 02/17/2014 Zoster Vaccines (1 of 2) Never done *COPD SEVERITY VERIFIED BY PFT Never done DTaP,Tdap,and Td Vaccines (2 - Td or Tdap) 10/27/2020 Depression Screening 02/20/2021 CKD PHOS USE SMARTSET 11682 08/08/2022 GFR 12/05/2022 Influenza Vaccine (FLU shot) (1) 02/05/2023 CKD HGB USE SMARTSET 74292 06/07/2023 Albumin/Creatinine Ratio 07/14/2023 Mammogram 07/28/2023 [facility] Mamm jul 28 pap Care Gap Outreach Action Taken: Left message documented in this encounter Plan of Treatment Scheduled Procedures Name Priority Associated Diagnoses Date/Ti me COLONOSCOPY FLEXIBLE PROXIMA L DIAGNOSTIC Recall Encounter for screening colonoscopy Health Maintenance Due Date Last Done Comments DISCUSS TOBACCO CESSATION (REFER TO SMARTSET #6851) 1965 Hepatitis B (1 of 3 - [...] Screening 02/20/2021 02/21/2020 CKD PHOS USE SMARTSET 09465 08/08/2022 03/0 09/2021, 08/09/2020, 08/30/2019, Additional history exists GFR 12/05/2022 06/07/2022, 04/07, 08/08/2021, Additional history exists Influenza Vaccine (FLU shot) (#1) 2023 08/09/2020, 02/28/2019, 03/09/2018, Additional history exists CKD HGB USE SMARTSET 80465 06/07/202306/07, 04/19/2022, 08/08/2021, Additional history exists Albumin/Creatinine Ratio 07/14/2023 023, 08/08/2021, 08/09/2020, Additional history exists Mammogram 07/28/2023 07/28/2022, 04/0 10/2015, 03/14/2015, Additional history exists O2 ASSESSMENT COMPLETED IN PAST YEAR FOR COPD 10/31/2023 10/30/2022 Diabetes Screening 06/07/2025 06/07/2022, 1 06/19/2021, 08/08/2021, Additional history exists Lipid Panel 08/08/2026 08/08/2021, 10/2020, 08/31/2014 Colonoscopy 01/13/2028 01/12/2018, 01/12/2018 Colorectal [...] Documents on File Type Date Recorded 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
--- NOTE | 2023-08-21 12:52 | CT Scan Report ---
CT OF THE CHEST WITHOUT IV CONTRAST CLINICAL HISTORY: Pneumonia. Shortness of breath. Productive cough. COMPARISON STUDY: Chest radiograph August 20, 2023. CT DOSE: 256.59 mGy.cm TECHNIQUE: Axial images of the chest were obtained without IV contrast. Images were reviewed in the axial, sagittal, and coronal planes. IV contrast was not administered for this examination. Automat ed exposure control was utilized for the study. A dose lowering technique was utilized adhering to t he principles of ALARA. FINDINGS: No enlarged axillary, mediastinal or hilar lymph nodes are present. Size of the heart is n ormal. There is no significant pericardial effusion. No pneumothorax or pleural effusion is present. Emphysema is noted. Subpleural lower lobe opacities favor atelectasis. Mild alveolar opacities within the anterior segment of the right upper lobe are present. There is no cavitation. Central airways ar e patent. No discrete pulmonary nodules are identified. No acute fractures within the bony thorax. Vi sualized portions of the upper abdomen are unremarkable on unenhanced exam. IMPRESSION: 1. Mild alveolar opacities within the anterior segment of the right upper lobe suggestive of an infec tious process such as bronchiolitis or developing bronchopneumonia. 2. Emphysema. 3. No pleural effusion. ACT 112: Negative or not required by law. Electronically signed by: Nagi Santana M.D. 08/21/2023 12:49 PM
[2023-08-21] MEDS: SODIUM CHLOR 7% 4 ML NEB NEB SCH (19:46)
--- NOTE | 2023-08-22 07:33 | Pulmonology Progress Note ---
Date of Service August 22, 2023 Assessment & Plan (1) Acute exacerbation of chronic obstructive pulmonary disease (COPD): (2) Tobacco abuse: (3) Dyspnea: (4) Chronic bronchitis: (5) Pneumonia: Plan CT chest 08/21/2023 personally reviewed: Centrilobular emphysema appreciated bilaterally especially in the upper lobes Patchy opacity appreciated in the medial segment of the right middle lobe Dependent atelectasis bilateral lower lobes No significant mediastinal or hilar lymphadenopathy -- Acute hypoxic respiratory failure Likely secondary to COPD exacerbation and right middle lobe pneumonia Respiratory bio fire negative for everything on 08/20/2023 Procalcitonin negative -- COPD with chronic bronchitis On Incruse inhaler at home -- Current smoker Patient is willing to quit Does not have any suicidal ideation, no history of seizures Chantix can be prescribed on discharge Plan: Continue with Anoro while in the hospital, on discharge likely Trelegy inhaler will be more beneficial Complete 5 days of azithromycin Patient is willing to quit, Chantix starter pack can be given to the patient. Prednisone taper over the next 7 days Continue with hypertonic saline nebulized Recommend repeating CT chest in 8 weeks to follow-up on the right middle lobe infiltrate Case was discussed with primary team Please note the above document was generated using voice recognition software. It may contain grammatical, syntax or spelling errors.Any formal questions or concerns about the content, text or information contained within the body of this dictation should be directly addressed to the provider for clarification. Admission and Anticipated Discharge Date Admission Date: August 20, 2023 Subjective Patient seen and examined at bedside. No acute distress, no adverse events overnight. She said that she is feeling much better since coming to the hospital Occasional cough with clear phlegm. No difficulty bringing up the phlegm No headache, no blurry vision Asking if she could be able to be sent home today Review of Systems 2 Review of Systems: All systems reviewed & are unremarkable except as noted in Subjective Physical Exam 2 Physical Exam: Constitutional: No acute distress HEENT: EOMI, PERRLA Respiratory system: Decreased air entry bilaterally, no rhonchi, no crackles, minimal expiratory wheeze, better than yesterday CVS: S1-S2 positive, no murmurs or gallops Abdomen: Soft, nontender, nondistended, positive bowel sounds x4 Extremities: +2 pulses bilaterally radialis/ dorsalis pedis, no cyanosis, no edema Neuro: Awake alert oriented x3 Psych: Normal mood and affect G/U: No [place] Skin: no rashes, warm and dry Lymphatic: no cervical or axillary lymphadenopathy Results & Data Results & Data Vital Signs (Past 12 Hours) Vital Signs Temp Pulse Pulse Resp BP BP Pulse Ox 08/22/23 07:06 64 08/22/23 07:05 75 18 92 08/22/23 03:13 36.3 C L 70 16 132/54 L 92 08/21/23 23:27 75 08/21/23 23:12 36.7 C 81 16 126/69 92 08/21/23 19:53 36.1 C L 82 18 133/68 94 08/21/23 19:47 85 20 92 O2 Del Method 08/22/23 07:06 08/22/23 07:05 Room Air 08/22/23 03:13 Room Air 08/21/23 23:27 08/21/23 23:12 Room Air 08/21/23 19:53 Room Air 08/21/23 19:47 Room Air Laboratory Results 08/21/23 05:37 08/21/23 05:37 PG Care Time/CCT Total # of Minutes Spent Total Time Spent with Patient: Total time spent is greater than 50% in coordination of care (as documented) at patient's floor/unit and/or counseling patient: Coding Level of Care Code 41444 SUB INP/OBS CARE 2/35MIN Diagnoses Acute exacerbation of chronic obstructive pulmonary disease (COPD) J44.1 Tobacco abuse Z72.0 Dyspnea R06.00 Chronic bronchitis J42 Pneumonia J18.9
[2023-08-22 08:02] LABS: Base Excess ABG -1.1 mEq/L (-9-1.8); HCO3 ABG 22 mmol/L (19-24); Oxygen Saturation ABG 93.6 % (90-95); PCO2 ABG 33 mmHg (35-46); PO2 ABG 63 mmHg (80-95); pH ABG 7.44 (7.35-7.45)
[2023-08-22 08:03] LABS: Allen Test Pos (Pos)
[2023-08-22 08:08] LABS: BUN Creatinine Ratio 21.4 (10-20); Calcium 9.5 mg/dl (8.6-10.3); Creatinine Clr Calc Pharmacy 41.4 ml/min; Est GFR (African American) 52.6 ml/min; Est GFR (Non-African American) 45.4 ml/min; Potassium 4.3 mmol/L (3.5-5.1)
[2023-08-22 08:12] LABS: Hematocrit (blood only) 36.7 % (37.0-47.0); Hemoglobin 12.2 g/dl (12.0-16.0); Mean Corpuscular Hemoglobin 31.7 pg (25.0-34.0); Mean Corpuscular Hgb Conc 33.2 g/dL (32.0-36.0); Mean Corpuscular Volume 95.3 fL (80.0-100.0); Mean Platelet Volume 10.6 fL (9.4-12.4); Platelet Count 291 K/uL (130-400); RDW Standard Deviation 41.9 fL (36.4-46.3); Red Blood Count 3.85 M/uL (4.20-5.40); White Blood Count 16.23 K/ul (4.8-10.8)
[2023-08-22] MEDS: UMECLIDINIUM/VILANTEROL 62.5/25MCG 7 PUFFS/INHALER INH SCH (08:22)
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
== END 2023-08-22 14:45 | disposition home or self-care (01) | DRG 190 ==
LOC: ED 12:08 → SUATTDRO 16:22 → 2N 16:22